=== PATIENT | female | born 1990 | race Caucasian/White ===

== ENCOUNTER 2017-04-23 12:32 | Emergency (ER) | payer BC, OTHER ==
[2017-04-23 12:39] VITALS: RESP 16; TEMP 98.1
[2017-04-23] MEDS ORDERED: KETOROLAC 15 MG/1 ML SDV IVP ONE (12:51)
[2017-04-23] MEDS ORDERED: ONDANSETRON 4 MG/2 ML VIAL IVP ONE (12:51)
[2017-04-23] MEDS ORDERED: NS 1,000 ML IV ONE (12:51)
[2017-04-23 13:01] LABS: % IMMATURE GRANULYOCYTES 0.2 % (0.0-1.1); ABSOLUTE IMMATURE GRANULOCYTES 0.01 10^3/uL (0.00-0.10); ADD DIFF? NO; ADD MORPH? NO; ADD SCAN? NO; ATYPICAL LYMPHOCYTE FLAG 20 (0-99); FRAGMENT RBC FLAG 0 (0-99); HEMATOCRIT 41.7 % (38.0-47.0); HEMOGLOBIN 13.9 g/dL (12.6-16.3); LEFT SHIFT FLG 0 (0-99); LIPEMIA HEMOLYSIS FLAG 80 (0-99); MEAN CELL HEMOGLOBIN 30.8 pg (27.9-34.1); MEAN CELL HEMOGLOBIN CONCENTR. 33.3 g/dL (32.4-36.7); MEAN CELL VOLUME 92.3 fL (81.5-99.8); MEAN PLATELET VOLUME 9.6 fL (8.7-11.7); PLATELET CLUMPS FLAG 20 (0-99); PLATELET COUNT 324 10^3/uL (150-400); RED BLOOD CELL COUNT 4.52 10^6/uL (4.18-5.33); RED CELL DISTRIBUTION WIDTH 12.7 % (11.5-15.2)
--- NOTE | 2017-04-23 13:02 | EDPHY ---
H & P Stated Complaint: RUQ PAIN SINCE 0700; NAUSEA Time Seen by Provider: 04/23/17 12:35 HPI/ROS: CHIEF COMPLAINT: Right upper quadrant discomfort HISTORY OF PRESENT ILLNESS: 26-year-old female states she woke at 7 o'clock this morning with a sharp pain in the right upper quadrant. Patient turned over in bed and developed significant nausea and spinning sensation. Discomfort has continued in the right upper quadrant. Feels like a knife stabbing straight through. She has been nauseous but vomiting. Has not eaten anything. No diarrhea. No fevers. No urinary complaints. 2 weeks ago patient had a day and a half a fever to 103 abdominal upset and bloating. Mild nausea at that time but no vomiting. She reports no cold or cough symptoms currently. No history of abdominal surgeries. No prior history of similar complaints. No history of kidney stones, gallstones, PEs, DVTs, or clotting disorders. There is a family history of gallstones. Currently on her period. Has an IUD in place. Pain is not pleuritic. Patient denies any shortness of breath or chest pain. She denies a headache or lightheadedness. REVIEW OF SYSTEMS: Aside from elements discussed in the HPI, a comprehensive 10-point review of systems was reviewed and is negative. PAST MEDICAL HISTORY: Rheumatoid arthritis, on Enbrel. SOCIAL HISTORY: Nonsmoker. Rare alcohol. 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 VITAL SIGNS Reviewed by me. GENERAL: Well-developed, well-nourished, appears uncomfortable. Moving somewhat slowly. HEENT: Atraumatic. Eyes: No icterus, no injection. Mouth: moist mucous membranes. No erythema or lesions. Neck: supple with no adenopathy. LUNGS: Clear to auscultation bilaterally, no wheezes, rhonchi or rales. CARDIAC: Regular rate and rhythm, no rubs, murmurs or gallops. ABDOMEN: Soft, tenderness in the right upper quadrant. No epigastric tenderness. No right lower quadrant tenderness. No distension. No guarding. No rebound. BACK: No CVA tenderness. EXTREMITIES: No trauma. No edema. Range of motion is normal throughout. NEURO: Alert and oriented, grossly nonfocal. SKIN: Warm and dry, no rash. PSYCHIATRIC: Normal mentation, no agitation. - Personal History LMP (Females 10-55): Now Current Tetanus/Diphtheria Vaccine: Yes Tetanus Vaccine Date: WITHIN 10 YRS - Medical/Surgical History Hx Asthma: No Hx Chronic Respiratory Disease: No Hx Diabetes: No Hx Cardiac Disease: No Hx Renal Disease: No Hx Cirrhosis: No Hx Alcoholism: No Hx HIV/AIDS: No Hx Splenectomy or Spleen Trauma: No Other PMH: RA - Social History Smoking Status: Never smoked Constitutional: Initial Vital Signs Temperature (C) 36.7 C 04/23/17 12:33 Heart Rate 54 L 04/23/17 12:33 Respiratory Rate 16 04/23/17 12:33 Blood Pressure 123/81 H 04/23/17 12:33 O2 Sat (%) 98 04/23/17 12:33 O2 Delivery Mode Room Air Allergies/Adverse Reactions: ciprofloxacin Allergy (Intermediate, Verified 04/23/17 12:39) Penicillins Allergy (Intermediate, Verified 04/23/17 12:39) Home Medications: Medication Instructions Recorded Enbrel 04/23/17 Ondansetron Odt [Zofran Odt 4 mg 4 mg PO Q6 PRN #8 tab 04/23/17 (RX)] Leidy 04/23/17 Medical Decision Making ED Course/Re-evaluation: 26-year-old female with abrupt onset of significant right upper quadrant tenderness. Patient does have a history of rheumatoid arthritis and is on Enbrel. She reports a fever was 2 weeks ago associated with some abdominal discomfort. Patient had IV established received normal saline, Toradol, and Zofran. Her labs are largely unremarkable. She does have a slight elevation in her bilirubin with the majority being unconjugated. Urinalysis is normal. White count is normal. Patient had ultrasound ordered. Re-examination at 2:30 p.m.: Patient reports her pain has significantly improved after the Toradol. She does not have a history of gastritis and does not feel that the pain has a burning component. No discomfort when taking a deep breath. Ultrasound results demonstrate no gallstones, no sonographic Monae's, no gallbladder wall thickening. There is a small amount of pericholecystic fluid with no definitive cause. Liver looks normal. Patient reports feeling much improved. She was discharged with symptomatic care including Zofran to use as needed for nausea, Prilosec for epigastric and right upper quadrant discomfort, and instructions to return to the emergency department or seek care urgently if she is worsening despite the above measures. She is comfortable with the plan. Differential Diagnosis: Differential diagnosis for the patient's upper abdominal pain was considered including but not limited to cholecystitis, gastritis, peptic ulcers disease, and pancreatitis. - Data Points Laboratory Results: Laboratory Results 04/23/17 12:55 04/23/17 12:55 Medications Given: Discontinued Medications Sodium Chloride (Ns) 1,000 mls @ 0 mls/hr IV ONCE ONE PRN Reason: Wide Open Stop: 04/23/17 12:52 Last Admin: 04/23/17 12:57 Dose: 1,000 mls Ketorolac Tromethamine (Toradol) 15 mg IVP EDNOW ONE Stop: 04/23/17 12:52 Last Admin: 04/23/17 12:57 Dose: 15 mg Ondansetron HCl (Zofran) 4 mg IVP EDNOW ONE Stop: 04/23/17 12:52 Last Admin: 04/23/17 12:57 Dose: 4 mg Departure - Departure Disposition: Home, Routine, Self-Care Clinical Impression: Abdominal pain, Abdominal discomfort in right upper quadrant Condition: Good Instructions: Gastritis (ED), Abdominal Pain (ED) Additional Instructions: For your abdominal pain, I suggested you start with a bland diet and advance as tolerated. This means start with clear liquids such as water, Gatorade, juice, flat non- caffeinated soda. If you tolerate clear liquids, then you may add bland foods such as bananas, rice, or toast. If you do not have any worsening of your symptoms, you may begin to resume a regular diet. A suggest you begin taking a 2 week course of Prilosec. Okay to use ibuprofen if needed for pain. You been given a prescription of Zofran to use as needed for nausea. If you have recurrent episode of severe discomfort, if you developed pain associated with vomiting or fever, developed urinary complaints, bloating, diarrhea, fevers, or other concerns, please return to the emergency department or follow up with primary care physician. Referrals: NONE *PRIMARY CARE P,. [Primary Care Provider] - As per Instructions Prescriptions: Ondansetron Odt [Zofran Odt 4 mg (RX)] 4 mg PO Q6 PRN #8 tab PRN Reason: Nausea
[2017-04-23 13:19] LABS: ALANINE AMINOTRANSFERASE 34 IU/L (9-52); ALBUMIN 4.4 g/dL (3.5-5.0); ALKALINE PHOSPHATASE 53 IU/L (38-126); ANION GAP 14 mEq/L (8-16); ASPARTATE AMINOTRANSFERASE 21 IU/L (14-46); BILIRUBIN,TOTAL 1.8 mg/dL (0.1-1.4); BILIRUBIN-CONJUGATED 0.3 mg/dL (0.0-0.5); BILIRUBIN-UNCONJUGATED 1.5 mg/dL (0.0-1.1); CALCIUM 9.5 mg/dL (8.5-10.4); CARBON DIOXIDE 25 mEq/l (22-31); CHLORIDE 104 mEq/L (97-110); CREATININE 0.6 mg/dL (0.6-1.0); GLOMERULAR FILTRATION RATE > 60; GLUCOSE 78 mg/dL (70-100); POTASSIUM 4.1 mEq/L (3.5-5.2); SODIUM 143 mEq/L (134-144); TOTAL PROTEIN 7.4 g/dL (6.3-8.2)
[2017-04-23 13:44] LABS: COLOR YELLOW; LEUKOCYTE ESTERASE,URINE NEGATIVE (NEGATIVE); NITRITE,URINE NEGATIVE (NEGATIVE); PH,URINE 6.5 (5.0-7.5)
[2017-04-23 14:01] VITALS: PULSE 57
[2017-04-23 15:34] VITALS: BP 110/74; O2SAT 98
== END 2017-04-23 15:33 | disposition home or self-care (01) ==
LOC: CED 12:32
DX: R10.11 Right upper quadrant pain (principal); R11.10 Vomiting, unspecified
CPT/HCPCS: 76705-PO; 80048-PO; 80076-PO; 81003-PO; 83690-PO; 84703-PO; 85025-PO; 96374; J1885; J2405

== ENCOUNTER → 2017-05-22 | Outpatient (CLI) | payer OTHER | LOC: BMCIMAGING 16:09 | PROVIDERS: ATTEND Internal Medicine Rheumatology | DX: R06.02 Shortness of breath (principal); Z13.89 Encounter for screening for other disorder ==

== ENCOUNTER → 2017-05-26 | Outpatient (CLI) | payer OTHER | LOC: FIMAGING 17:05 | PROVIDERS: ATTEND Physician Assistant | DX: K59.00 Constipation, unspecified (principal); R14.0 Abdominal distension (gaseous); R10.84 Generalized abdominal pain ==

== ENCOUNTER → 2017-06-21 | Outpatient (CLI) | payer OTHER | LOC: FIMAGING 07:58 | PROVIDERS: ATTEND Physician Assistant | DX: K82.8 Other specified diseases of gallbladder (principal) | CPT/HCPCS: 78227; A9537 ==

== ENCOUNTER 2017-07-03 10:38 | Day surgery (SDC) | payer OTHER ==
[2017-07-03] MEDS ORDERED: CLINDAMYCIN 900 MG/DEXTROSE 50 ML IV ONE (10:53)
[2017-07-03] MEDS ORDERED: LIDOCAINE 1% 2 ML INJ ID PRN (10:55)
[2017-07-03] MEDS ORDERED: LR 1,000 ML IV ONE (10:55)
[2017-07-03] MEDS ORDERED: MIDAZOLAM 2 MG/2 ML VIAL IVP ONE (11:15)
--- NOTE | 2017-07-03 11:16 | PDANEPAE ---
ANE History of Present Illness Patient presents for lap anibal BONNIE Past Medical History - Cardiovascular History Hx Hypertension: No Hx Arrhythmias: No Hx Chest Pain: No Hx Coronary Artery / Peripheral Vascular Disease: No Hx CHF / Valvular Disease: No Hx Palpitations: No - Pulmonary History Hx COPD: No Hx Asthma/Reactive Airway Disease: No Hx Recent Upper Respiratory Infection: No Hx Oxygen in Use at Home: No Hx Sleep Apnea: No Sleep Apnea Screening Result - Last Documented: Negative - Neurologic History Hx Cerebrovascular Accident: No Hx Seizures: No Hx Dementia: No - Endocrine History Hx Diabetes: No - Renal History Hx Renal Disorders: No - Liver History Hx Hepatic Disorders: No - Neurological & Psychiatric Hx Hx Neurological and Psychiatric Disorders: No - Cancer History Hx Cancer: No - Congenital Disorder History Hx Congenital Disorders: No - GI History Hx Gastrointestinal Disorders: Yes Gastrointestinal History Comment: GALL STONES - Other Health History Other Health History: RHEUMATOID ARTHRITIS - Chronic Pain History Chronic Pain: Yes (GASTRIC) - Surgical History Prior Surgeries: WISDOM TEETH ANE Review of Systems Review of Systems: - Exercise capacity Exercise capacity: >=4 METS METS (RN): 4 METS ANE Patient History - Allergies Allergies/Adverse Reactions: ciprofloxacin Allergy (Intermediate, Verified 04/23/17 12:39) Penicillins Allergy (Intermediate, Verified 04/23/17 12:39) - Home Medications Home medications: home medication list seen and reviewed Home Medications: Enbrel ONCE 04/23/17 [Last Taken 06/26/17] Herbal Drugs DAILY 06/30/17 [Last Taken 06/26/17] - NPO status NPO Status: no food or drink >8 hours - Anes Hx Anes Hx: no prior problems - Smoking Hx Smoking Status: Never smoked - Family Anes Hx Family Hx Anesthesia Complications: NEG ANE Labs/Vital Signs - Vital Signs Height: 154.94 cm Weight: 48.534 kg ANE Physical Exam - Airway Neck exam: FROM Mallampati Score: Class 1 Mouth exam: normal dental/mouth exam - Pulmonary Pulmonary: no respiratory distress - Cardiovascular Cardiovascular: regular rate and rhythym - ASA Status ASA Status: I ANE Anesthesia Plan Anesthesia Plan: general endotracheal anesthesia (RBA discussed)
--- NOTE | 2017-07-03 11:33 | PDHPUP ---
History & Physical Update H&P update statement: This history and physical update is based on an assessment of the patient which was completed after admission or registration (within 24 hours), but prior to the surgery/procedure. H&P update: H&P reviewed & patient examined, no change in patient's condition since H&P completed
[2017-07-03] MEDS ORDERED: BUPIVACAINE/EPI 0.5% 30 ML SDV ONE (11:55)
[2017-07-03] MEDS ORDERED: PROPOFOL 200 MG/20 ML VIAL ONE (11:55)
[2017-07-03] MEDS ORDERED: fentaNYL 100 MCG/2 ML INJ ONE ×3 (11:55→13:55)
[2017-07-03] MEDS ORDERED: LIDOCAINE 2% 5 ML SDV ONE (11:57)
[2017-07-03] MEDS ORDERED: ROCURONIUM 50 MG/5 ML VIAL ONE ×2 (11:57→12:29)
[2017-07-03] MEDS ORDERED: PROPOFOL/EMULSION 500 MG/50 ML BOTTLE IV ONE (12:13)
[2017-07-03] MEDS ORDERED: ONDANSETRON 4 MG/2 ML VIAL ONE (12:26)
[2017-07-03] MEDS ORDERED: DEXAMETHASONE 4 MG/ML VIAL ONE (12:26)
[2017-07-03] MEDS ORDERED: SUGAMMADEX SODIUM 200 MG/2 ML VIAL IVP ONE (12:27)
[2017-07-03] MEDS ORDERED: KETOROLAC 30 MG/1 ML SDV ONE (12:27)
[2017-07-03] MEDS ORDERED: OXYCODONE/APAP 5/325 TAB PO PRN (13:06)
[2017-07-03] MEDS ORDERED: LR 500 ML IV PRN (13:06)
[2017-07-03] MEDS ORDERED: PROMETHAZINE HCL 25 MG/ML INJ IVP PRN (13:06)
[2017-07-03] MEDS ORDERED: HYDROCODONE/APAP 5/325 TAB PO PRN (13:06)
[2017-07-03] MEDS ORDERED: ONDANSETRON 4 MG/2 ML VIAL IVP PRN (13:06)
[2017-07-03] MEDS ORDERED: NALOXONE HCL 0.4 MG/ML INJ IVP PRN (13:06)
--- NOTE | 2017-07-03 13:26 | POSTOPPROG ---
Post Op Note Date of Operation: 07/03/17 Surgeon: Noé Hatfield Marine Consultant: Columba PAK Anesthesiologist: Amanda Anesthesia: GET(General Endotracheal) Pre-op Diagnosis: Biliary Dyskinesia Post-op Diagnosis: Chronic cholecystitis Indication: pain Procedure: Robotic assisted lap anibal Findings: adhesions and edematous wall. Critical view obtained Inf/Abcess present in the surg proc area at time of surgery?: No EBL: Minimal Specimen(s): GB
--- NOTE | 2017-07-03 13:48 | POSTANESTH ---
Post Anesthetic Evaluation Cardiovascular Status: Normal, Stable Respiratory Status: Normal, Stable Level of Consciousness/Mental Status: Can Participate in Eval Pain Control: Adequate, Prn Tx Ordered Nausea/Vomiting Control: Adequate, Prn Tx Ordered Complications Possibly Related to Anesthesia: None Noted
[2017-07-03] MEDS: fentaNYL 100 MCG/2 ML INJ IVP PRN ×2 (13:57→14:10)
--- NOTE | 2017-07-03 15:09 | GOP ---
[f rep st] OPERATIVE REPORT DATE OF OPERATION: 07/03/2017 SURGEON: Noé Hatfield MD BOUFFANT CURTAIN MACHINE TENDER: ZURDO Lr ANESTHESIA: General endotracheal provided by Dr. Lincoln Patel. PREOPERATIVE DIAGNOSIS: Biliary dyskinesia. POSTOPERATIVE DIAGNOSIS: Chronic cholecystitis. PROCEDURE PERFORMED: Robotic assisted laparoscopic cholecystectomy. FINDINGS: Multiple adhesions to the gallbladder wall, which was edematous. Critical view was obtain ed. SPECIMENS: Gallbladder. ESTIMATED BLOOD LOSS: 5 cc. DESCRIPTION OF PROCEDURE: The patient was greeted in the preoperative suite. Once again, risks, lincoln efits, and alternatives were discussed. Consent was signed. She was then brought back to the operat katy suite, placed on the OR table in a supine position. After all anesthesia machines, including SCD s were on and functioning, a World Health Organization time-out was performed. Antibiotics were give n on-call to the operating room. After successful induction of general anesthesia, the patient's abd omen was widely prepped and draped in typical sterile fashion. I entered the abdomen infraumbilically via a vertical cut down through which the Veress needle was pa ssed. I successfully insufflated with CO2 to 15 mmHg, which was well tolerated by the patient. Thro ugh this site, I inserted a 10/12 mm trocar under direct visualization using the Visiport technique. Once successfully in the abdomen, I placed 3 additional 8 mm trocars, 1 in the left upper quadrant, 2 in the right upper quadrant, both under direct visualization. After this was done, I successfully docked the robot. Once in the abdomen, I grabbed the fundus of the gallbladder and successfully retr acted it over the dome of the liver. Once retracted, I grabbed the infundibulum and did take down so me small omental adhesions to the infundibulum of the gallbladder. After doing this, I dissected sha rply at the infundibulum and identified 2 and only 2 structures leading toward the gallbladder with a clear view of the hepatic plate deep to this. After this was done, I placed 2 clips proximally, 1 c lip distally on the cystic duct and artery and successfully divided them. I then took the gallbladde r off the liver bed using electrocautery. It was then placed in an EndoCatch bag and removed. The r ight upper quadrant was then irrigated with warm normal saline noting clear effluent in the suction c anister. The ports were then removed under direct visualization. I desufflated my pneumoperitoneum, and I closed my infraumbilical site with an interrupted 0-Vicryl noting excellent fascial reapproxim ation. The skin was closed with running 4-0 Monocryl over which Dermabond was placed. The patient w as then extubated in the operative suite and taken to the PACU in satisfactory condition. DRAINS: None. COUNTS: All counts were reported as correct x2. /[id number]/MODL
[2017-07-03 16:10] VITALS: TEMP 97
[2017-07-03 16:34] VITALS: BP 120/72; PULSE 68; RESP 16; O2SAT 98
[2017-07-03] MEDS ORDERED: OXYCODONE/APAP 5/325 TAB ONE (16:56)
== END 2017-07-03 17:30 | disposition home or self-care (01) ==
LOC: FSGY 10:38
PROVIDERS: ATTEND Surgery
PROC: 8E0W4CZ Robotic Assisted Procedure of Trunk Region, Percutaneous Endoscopic Approach (ICD-10-PCS; principal; 2017-07-03 12:00)
PROC: 0FT44ZZ Resection of Gallbladder, Percutaneous Endoscopic Approach (ICD-10-PCS; principal; 2017-07-03 12:00)
DX: K81.1 Chronic cholecystitis (principal)
CPT/HCPCS: J1100; J1885; J2250; J2405; J2704; J3010

== ENCOUNTER 2017-07-03 18:50 | Observation (INO) | payer OTHER ==
--- NOTE | 2017-07-03 19:21 | CPEKG ---
Heart Rate: 61 RR Interval: 984 P-R Interval: 128 QRSD Interval: 104 QT Interval: 400 QTC Interval: 403 P [place]: 79 QRS [place]: 79 T Wave [place]: 35 EKG Severity - BORDERLINE ECG - EKG Impression: SINUS RHYTHM EKG Impression: BORDERLINE T ABNORMALITIES, ANTERIOR LEADS Electronically Signed By: Elmer Cochran 03-Jul-2017 23:42:20
--- NOTE | 2017-07-03 19:40 | EDPHY ---
H & P Time Seen by Provider: 07/03/17 19:39 HPI/ROS: Chief complaint. painful breathing HPI. 26-year-old female presents emergency department with chest pain and painful breathing as well as abdominal pain. She had a cholecystectomy today as an outpatient for nonfunctioning gallbladder. She felt well going into the surgery. Since then she has had chest pain abdominal pain that are not controlled with Percocet. She short of breath and it hurts to take a deep breath. No nausea or vomiting. No cough or fever. She has rheumatoid arthritis and has held her Enbrel this week secondary to anticipation of surgery. No unusual leg pain or swelling. ROS Constitutional. no fever/chills, no weakness Eyes. no problems with vision ENT. no sore throat, no nasal drainage Cardiovascular. Chest pain Respiratory. Shortness of breath and pain with deep breathing. No cough Abdominal. Abdominal pain without nausea vomiting . no problems urinating MS. no calf pain/swelling, no neck/back pain, no joint pain Skin. no rash Lymph. no swollen glands Neuro. no headache, no dizziness, no difficulty walking or with speech Past Medical/Surgical History: Rheumatoid arthritis, cholecystectomy Social History: , nonsmoker, no alcohol Smoking Status: Never smoked Physical Exam: General Appearance: Alert well-developed female moderate distress. Vital signs are stable Eyes: Pupils equal and round no pallor or injection. ENT, Mouth: Mucous membranes are moist. Respiratory: There are no retractions, lungs are clear to auscultation. Cardiovascular: Regular rate and rhythm. Gastrointestinal: Abdomen is soft and diffusely tender. Well-approximated surgical incisions in left and right abdomen as well as periumbilical. Slightly decreased bowel sounds. No masses Neurological: Awake and alert, sensory and motor exams grossly normal. Skin: Warm and dry, no rashes. Musculoskeletal: Neck is supple nontender. Extremities symmetrical, full range of motion. Psychiatric: Patient is oriented X 3, there is no agitation. Constitutional: Initial Vital Signs Temperature (C) 37.2 C 07/03/17 19:06 Heart Rate 86 07/03/17 19:06 Respiratory Rate 14 07/03/17 19:06 Blood Pressure 123/71 H 07/03/17 19:06 O2 Sat (%) 96 07/03/17 19:06 O2 Delivery Mode Room Air Allergies/Adverse Reactions: ciprofloxacin Allergy (Intermediate, Verified 04/23/17 12:39) Penicillins Allergy (Intermediate, Verified 04/23/17 12:39) Home Medications: Medication Instructions Recorded Enbrel ONCE 04/23/17 Herbal Drugs DAILY 06/30/17 oxyCODONE HCL/ACETAMINOPHEN 1 each PO Q4HRS #30 tablet 07/03/17 [Percocet 5-325 mg Tablet] Medical Decision Making - Diagnostics EKG Interpretation: EKG interpreted by me shows normal sinus rhythm normal interval and axis. QRS is normal. Slight T-wave flattening in leads V2 and V3. No significant ST elevation or depression. No arrhythmia. The rate is 60 Imaging Results: Imaging Impressions Abdomen CT 07/03/17 19:55 Impression: 1. Small to moderate pneumoperitoneum with a small amount of free fluid, most likely within normal limits for cholecystectomy earlier today. However, given the ascites, a bile leak cannot be excluded. 2. No visible pulmonary embolus. 3. Additional findings as above. Findings discussed with BUD MATHUR 07/03/2017 at 23:05. Chest/Thorax CTA 07/03/17 19:55 Impression: 1. Small to moderate pneumoperitoneum with a small amount of free fluid, most likely within normal limits for cholecystectomy earlier today. However, given the ascites, a bile leak cannot be excluded. 2. No visible pulmonary embolus. 3. Additional findings as above. Findings discussed with BUD MATHUR 07/03/2017 at 23:05. Procedures: IV normal saline. Dilaudid for pain. Zofran for nausea prevention ED Course/Re-evaluation: On serial evaluations patient continues to complain of pain. She is given further pain medication and IV Ativan. 11:20 p.m. re-evaluation patient is stable. She and I discussed imaging and lab results. We discussed treatment plan including criteria for return importance of follow-up and further evaluation. She expresses understanding and agreement I consulted and discussed case with Dr. Gleason, surgery, who agrees to the admission Differential Diagnosis: Patient has findings of postoperative changes. There is no evidence for pulmonary embolus however the patient has atelectasis. She has free air and fluid in the abdomen which may represent bile leak but also could represent postoperative laparoscopic air and fluid - Data Points Laboratory Results: Laboratory Results 07/03/17 20:40 07/03/17 20:40 07/03/17 07/03/17 07/03/17 Unknown 20:40 20:40 WBC RBC Hgb Hct MCV MCH MCHC RDW Plt Count MPV Neut % (Auto) Lymph % (Auto) [place] % (Auto) Eos % (Auto) Baso % (Auto) Nucleat RBC Rel Count Absolute Neuts (auto) Absolute Lymphs (auto) Absolute Monos (auto) Absolute Eos (auto) Absolute Basos (auto) Absolute Nucleated RBC Immature Gran % Immature Gran # PT 14.6 SEC SEC (12.0-15.0) INR 1.15 (0.83-1.16) APTT 29.8 SEC SEC (23.0-38.0) D-Dimer 1.21 ug/mLFEU H ug/mLFEU (0.00-0.50) Sodium 138 mEq/L mEq/L (134-144) Potassium 4.2 mEq/L mEq/L (3.5-5.2) Chloride 102 mEq/L mEq/L (97-110) Carbon Dioxide 23 mEq/l mEq/l (22-31) Anion Gap 13 mEq/L mEq/L (8-16) BUN 12 mg/dL mg/dL (7-23) Creatinine 0.7 mg/dL mg/dL (0.6-1.0) Estimated GFR > 60 Glucose 139 mg/dL H mg/dL (70-100) Calcium 9.6 mg/dL mg/dL (8.5-10.4) Total Bilirubin 1.1 mg/dL mg/dL (0.1-1.4) Conjugated Bilirubin 0.2 mg/dL mg/dL (0.0-0.5) Unconjugated Bilirubin 0.9 mg/dL mg/dL (0.0-1.1) AST 158 IU/L H IU/L (14-46) ALT 125 IU/L H IU/L (9-52) Alkaline Phosphatase 57 IU/L IU/L (38-126) Troponin I < 0.012 ng/mL ng/mL (0.000-0.034) Total Protein 7.5 g/dL g/dL (6.3-8.2) Albumin 4.2 g/dL g/dL (3.5-5.0) Lipase 437 IU/L H IU/L (23-300) Beta HCG, Qual NEGATIVE 07/03/17 20:40 WBC 10.87 10^3/uL H 10^3/uL (3.80-9.50) RBC 4.60 10^6/uL 10^6/uL (4.18-5.33) Hgb 14.0 g/dL g/dL (12.6-16.3) Hct 43.4 % % (38.0-47.0) MCV 94.3 fL fL (81.5-99.8) MCH 30.4 pg pg (27.9-34.1) MCHC 32.3 g/dL L g/dL (32.4-36.7) RDW 13.2 % % (11.5-15.2) Plt Count 267 10^3/uL 10^3/uL (150-400) MPV 10.0 fL fL (8.7-11.7) Neut % (Auto) 93.8 % H % (39.3-74.2) Lymph % (Auto) 5.0 % L % (15.0-45.0) [place] % (Auto) 0.7 % L % (4.5-13.0) Eos % (Auto) 0.0 % L % (0.6-7.6) Baso % (Auto) 0.2 % L % (0.3-1.7) Nucleat RBC Rel Count 0.0 % % (0.0-0.2) Absolute Neuts (auto) 10.20 10^3/uL H 10^3/uL (1.70-6.50) Absolute Lymphs (auto) 0.54 10^3/uL L 10^3/uL (1.00-3.00) Absolute Monos (auto) 0.08 10^3/uL L 10^3/uL (0.30-0.80) Absolute Eos (auto) 0.00 10^3/uL L 10^3/uL (0.03-0.40) Absolute Basos (auto) 0.02 10^3/uL 10^3/uL (0.02-0.10) Absolute Nucleated RBC 0.00 10^3/uL 10^3/uL (0-0.01) Immature Gran % 0.3 % % (0.0-1.1) Immature Gran # 0.03 10^3/uL 10^3/uL (0.00-0.10) PT INR APTT D-Dimer Sodium Potassium Chloride Carbon Dioxide Anion Gap BUN Creatinine Estimated GFR Glucose Calcium Total Bilirubin Conjugated Bilirubin Unconjugated Bilirubin AST ALT Alkaline Phosphatase Troponin I Total Protein Albumin Lipase Beta HCG, Qual Medications Given: Hydromorphone HCl (Dilaudid) 0.5 mg IVP Q2HRS PRN PRN Reason: Pain, Severe Unable to Take PO Last Admin: 07/03/17 21:39 Dose: 0.5 mg Discontinued Medications Hydromorphone HCl (Dilaudid) 0.5 mg IVP EDNOW ONE Stop: 07/03/17 19:55 Last Admin: 07/03/17 20:32 Dose: 0.5 mg Sodium Chloride (Ns) 1,000 mls @ 0 mls/hr IV EDNOW ONE; Wide Open PRN Reason: Protocol Stop: 07/03/17 19:55 Last Admin: 07/03/17 20:34 Dose: 1,000 mls Lorazepam (Ativan Injection) 1 mg IVP EDNOW ONE Stop: 07/03/17 21:36 Last Admin: 07/03/17 21:39 Dose: 1 mg Ondansetron HCl (Zofran) 4 mg IVP EDNOW ONE Stop: 07/03/17 19:55 Last Admin: 07/03/17 20:31 Dose: 4 mg Ondansetron HCl (Zofran) 4 mg IVP EDNOW ONE Stop: 07/03/17 19:55 Last Admin: 07/03/17 20:44 Dose: Not Given Departure - Departure Disposition: [facility] Inpatient Acute Clinical Impression: Abdominal pain Qualifiers: Abdominal location: right upper quadrant Qualified Code(s): R10.11 - Right upper quadrant pain Condition: Fair Referrals: Judy Ogden PA [Primary Care Provider] - As per Instructions
[2017-07-03] MEDS ORDERED: ONDANSETRON 4 MG/2 ML VIAL IVP ONE ×2 (19:54)
[2017-07-03] MEDS ORDERED: HYDROmorphONE/DILAUDID 1 MG/ML INJ IVP ONE (19:54)
[2017-07-03] MEDS ORDERED: NS 1,000 ML IV ONE (19:54)
[2017-07-03 20:47] LABS: % IMMATURE GRANULYOCYTES 0.3 % (0.0-1.1); ABSOLUTE IMMATURE GRANULOCYTES 0.03 10^3/uL (0.00-0.10); ADD DIFF? NO; ADD MORPH? NO; ADD SCAN? NO; ATYPICAL LYMPHOCYTE FLAG 0 (0-99); FRAGMENT RBC FLAG 0 (0-99); HEMATOCRIT 43.4 % (38.0-47.0); LEFT SHIFT FLG 20 (0-99); LIPEMIA HEMOLYSIS FLAG 80 (0-99); MEAN CELL HEMOGLOBIN 30.4 pg (27.9-34.1); MEAN CELL HEMOGLOBIN CONCENTR. 32.3 g/dL (32.4-36.7); MEAN CELL VOLUME 94.3 fL (81.5-99.8); PLATELET CLUMPS FLAG 0 (0-99); PLATELET COUNT 267 10^3/uL (150-400); RED CELL DISTRIBUTION WIDTH 13.2 % (11.5-15.2)
[2017-07-03 20:59] LABS: INR 1.15 (0.83-1.16); PROTIME(PATIENT) 14.6 SEC (12.0-15.0)
[2017-07-03 21:00] LABS: APTT 29.8 SEC (23.0-38.0)
[2017-07-03 21:03] LABS: ALANINE AMINOTRANSFERASE 125 IU/L (9-52); ALBUMIN 4.2 g/dL (3.5-5.0); ALKALINE PHOSPHATASE 57 IU/L (38-126); ANION GAP 13 mEq/L (8-16); ASPARTATE AMINOTRANSFERASE 158 IU/L (14-46); BILIRUBIN,TOTAL 1.1 mg/dL (0.1-1.4); BILIRUBIN-CONJUGATED 0.2 mg/dL (0.0-0.5); BILIRUBIN-UNCONJUGATED 0.9 mg/dL (0.0-1.1); CALCIUM 9.6 mg/dL (8.5-10.4); CARBON DIOXIDE 23 mEq/l (22-31); CHLORIDE 102 mEq/L (97-110); CREATININE 0.7 mg/dL (0.6-1.0); GLOMERULAR FILTRATION RATE > 60; GLUCOSE 139 mg/dL (70-100); POTASSIUM 4.2 mEq/L (3.5-5.2); SODIUM 138 mEq/L (134-144); TOTAL PROTEIN 7.5 g/dL (6.3-8.2)
[2017-07-03 21:14] LABS: TROPONIN I < 0.012 ng/mL (0.000-0.034)
[2017-07-03] MEDS ORDERED: LORazepam 2 MG/ML INJ IVP ONE (21:35)
[2017-07-03] MEDS ORDERED: HYDROmorphONE/DILAUDID 1 MG/ML INJ IVP PRN (21:35)
[2017-07-03] MEDS ORDERED: HYDROmorphONE/DILAUDID 1 MG/ML INJ ONE (21:36)
[2017-07-03] MEDS ORDERED: LORazepam 2 MG/ML INJ ONE (21:37)
[2017-07-03] MEDS ORDERED: IOPAMIDOL (ISOVUE 370) 100 ML BTL IV ONE (22:28)
[2017-07-04] MEDS ORDERED: HYDROmorphONE/DILAUDID 2 MG/ML INJ IVP PRN ×2 (00:30→01:28)
--- NOTE | 2017-07-04 01:18 | PDGENHP ---
History & Physical Chief Complaint: CHEST PAIN History of Present Illness: 26 FEMALE POSTOP FROM LAP ADRI TODAY, C/O RUQ PAIN AND CHEST PAIN WITH DEEP BREATH. CT IS WNL. LFTs MILDLY ELEVATED/ AFEBRILE. AFTER MUCH NARCOTICS LISTS PAIN 8. ADMIT FOR OBS AND PAIN CONTROL Pertinent Past, Social, Family History: PMH BILIARY DYSKINESIA AND LAP CHOLEY/ ALSO RA. ALL CIPRO, PCN. MEDS EMBRAL. ROS - 10 PT REVIEW. FMH NONCOTRIB Relevant Physical Exam: HEENT NONICTERIC, NO ORAL LESIONS. CHEST CLEAR W/O RUB OR WHEEZING. COR RR. ABD: SOFT, NO PERITONEAL SXs. EXTREM: FULL ROM. NEURO OK GEN: ALERT, AFEBRILE 26 FEMALE Cardiorespiratory Assessment: ABD AND CHEST PAIN WITH RESP 2/2 CO2 INFLATION/ SOME SLIGHT CHANCE OF BILE LEAK. PLAN ADMIT FOR OBS, PAIN CONTROL/ POSSIBLE HIDA/ RISKS AND OPTIONS FULLY DISCUSSED
[2017-07-04] MEDS ORDERED: ONDANSETRON 4 MG/2 ML VIAL IVP PRN (01:28)
[2017-07-04] MEDS ORDERED: OXYCODONE/APAP 5/325 TAB PO PRN (01:28)
[2017-07-04] MEDS: D5W 1/2 NS W/ 20 KCl/L 1,000 ML IV SCH (03:09)
[2017-07-04 05:34] LABS: % IMMATURE GRANULYOCYTES 0.2 % (0.0-1.1); ABSOLUTE IMMATURE GRANULOCYTES 0.02 10^3/uL (0.00-0.10); ADD DIFF? NO; ADD MORPH? NO; ADD SCAN? NO; ATYPICAL LYMPHOCYTE FLAG 10 (0-99); FRAGMENT RBC FLAG 0 (0-99); HEMATOCRIT 35.7 % (38.0-47.0); HEMOGLOBIN 11.9 g/dL (12.6-16.3); LEFT SHIFT FLG 30 (0-99); LIPEMIA HEMOLYSIS FLAG 80 (0-99); MEAN CELL HEMOGLOBIN CONCENTR. 33.3 g/dL (32.4-36.7); MEAN PLATELET VOLUME 10.2 fL (8.7-11.7); PLATELET CLUMPS FLAG 0 (0-99); PLATELET COUNT 249 10^3/uL (150-400); RED BLOOD CELL COUNT 3.84 10^6/uL (4.18-5.33); RED CELL DISTRIBUTION WIDTH 13.1 % (11.5-15.2)
[2017-07-04] MEDS: KETOROLAC 15 MG/1 ML SDV IVP SCH ×3 (06:00→17:53)
[2017-07-04 06:02] LABS: ALANINE AMINOTRANSFERASE 370 IU/L (9-52); ALBUMIN 3.1 g/dL (3.5-5.0); ALKALINE PHOSPHATASE 54 IU/L (38-126); AMYLASE 33 IU/L (30-110); ASPARTATE AMINOTRANSFERASE 359 IU/L (14-46); BILIRUBIN,TOTAL 1.3 mg/dL (0.1-1.4); BILIRUBIN-CONJUGATED 0.2 mg/dL (0.0-0.5); BILIRUBIN-UNCONJUGATED 1.1 mg/dL (0.0-1.1); TOTAL PROTEIN 5.9 g/dL (6.3-8.2)
--- NOTE | 2017-07-04 08:52 | CPEKG ---
Heart Rate: 52 RR Interval: 1154 P-R Interval: 144 QRSD Interval: 96 QT Interval: 420 QTC Interval: 391 P [place]: 69 QRS [place]: 83 T Wave [place]: 50 EKG Severity - BORDERLINE ECG - EKG Impression: SINUS RHYTHM EKG Impression: BORDERLINE T ABNORMALITIES, ANTERIOR LEADS EKG Impression: unchanged from previous ECGs Electronically Signed By: Jeremías Holley 04-Jul-2017 11:23:08
[2017-07-04 08:58] LABS: TROPONIN I < 0.012 ng/mL (0.000-0.034)
[2017-07-04 09:24] LABS: CREATINE KINASE-MB FRACTION 0.81 ng/mL (0.00-3.19)
[2017-07-04] MEDS ORDERED: HYDROmorphONE/DILAUDID 2 MG TAB PO PRN (11:37)
[2017-07-04] MEDS: LORazepam 1 MG TAB PO PRN ×3 (12:31→22:16)
--- NOTE | 2017-07-04 13:51 | SOAPPROG ---
SOAP Progress Note Assessment/Plan: Assessment/Plan: 26yo F POD#1 s/p lev barnett - Admitted overnight for pain. CT at that time showed appropriate fluid in GB fossa. HIDA this AM shows no leak and no biliary obstruction. LFTs up a little bit but not unanticipated given recent manipulation. Have changed pain medications around and will see how she does and eval for poss dc later today. 07/04/17 13:50 Subjective: Pain still an issue. Eating fine tho. Voiding. Objective: Vital Signs Temp Pulse Resp BP Pulse Ox 36.8 C 66 16 117/77 98 07/04/17 11:59 07/04/17 11:59 07/04/17 11:59 07/04/17 11:59 07/04/17 11:59 Laboratory Results 07/04/17 05:07 07/03/17 07/04/17 07/05/17 05:59 05:59 05:59 Intake Total 1000 Balance 1000 PT 14.6 SEC (12.0-15.0) 07/03/17 20:40 INR 1.15 (0.83-1.16) 07/03/17 20:40 ICD10 Worksheet Patient Problems: Problems Problem Status Onset Abdominal pain Acute Jaw pain Acute Spontaneous vaginal delivery Acute
--- NOTE | 2017-07-04 13:59 | ASMTCMCOM ---
CM Note CM Note Notes: Pt om fpr abd pain post surgery, anticipate pt will d/c when medically stable. No CM d/c needs identified. CM available for change/needs. Date Signed: 07/04/2017 01:59 PM Electronically Signed By:YOKO Taylor
[2017-07-04 23:36] VITALS: RESP 16; TEMP 98.5
[2017-07-05] MEDS: KETOROLAC 15 MG/1 ML SDV IVP SCH ×3 (00:29→11:24)
[2017-07-05] MEDS: D5W 1/2 NS W/ 20 KCl/L 1,000 ML IV SCH (00:30)
[2017-07-05 08:34] VITALS: BP 114/69; PULSE 71; O2SAT 97
[2017-07-05] MEDS ORDERED: IBUPROFEN 600 MG TAB PO PRN (10:37)
[2017-07-05] MEDS: SIMETHICONE 80 MG TAB CHEW PO SCH ×2 (11:25→12:58)
[2017-07-05 14:03] LABS: ALBUMIN 3.8 g/dL (3.5-5.0); BILIRUBIN,TOTAL 1.3 mg/dL (0.1-1.4); BILIRUBIN-CONJUGATED 0.3 mg/dL (0.0-0.5); TOTAL PROTEIN 6.7 g/dL (6.3-8.2)
--- NOTE | 2017-07-05 14:24 | ASDISCHSUM ---
Discharge Information Plan Status:Home with No Needs Medically Cleared to Leave: Discharge Date:07/05/2017 01:30 PM CM D/C Disposition:Home, Routine, Self-Care ADT D/C Disposition:Home, Routine, Self-Care Projected Discharge Date:07/05/2017 01:30 PM Transportation at D/C: Discharge Delay Reason: Follow-Up Date:07/05/2017 01:30 PM Discharge Slot: Final Diagnosis: Placement Information Patient Contact Information Contact Name:BARRY Relationship: Address:[address] Home Phone: City:[place] Alternate Phone: [facility]/Zip Code:[place] [address] Email: Financial Information Financial Class:HMO and PPO Plans Primary Plan Desc:[employer] PPO Primary Plan Number:[id number] Secondary Plan Desc: Secondary Plan Number: Assessment Information [facility] CM Progress Note CM Note CM Note Notes: Pt om fpr abd pain post surgery, anticipate pt will d/c when medically stable. No CM d/c needs identified. CM available for change/needs. Date Signed: 07/04/2017 01:59 PM Electronically Signed By:YOKO Taylor Intervention Information
== END 2017-07-05 13:30 | disposition home or self-care (01) ==
LOC: INTOOBSV 23:27 → F3N 07-04 00:21
PROVIDERS: ADMIT Surgery; ATTEND Surgery
DX: G89.18 Other acute postprocedural pain (principal); R06.09 Other forms of dyspnea; M06.9 Rheumatoid arthritis, unspecified
CPT/HCPCS: 71275; 74177; 78226; 93005; 96361; 96374; 96375; 96376; 99285; A9537; G0378; J1170; J1885; J2060; J2405; Q9967

== ENCOUNTER 2017-11-14 20:27 | Emergency (ER) | payer OTHER ==
[2017-11-14 20:35] VITALS: RESP 16; TEMP 98.1; O2SAT 98
--- NOTE | 2017-11-14 20:58 | EDPHY ---
General Narrative: CHIEF COMPLAINT: Left calf pain, headache, blurred vision HISTORY OF PRESENT ILLNESS: Patient complains of 24 hr of left calf pain and 12 hr of intermittent headache and blurred vision. Left calf pain is isolated to the posterior aspect of the calf. She felt as though it may have been a muscle strain or spasm. She has attempted to stretch and massage with no improvement. The pain does not radiate. It is somewhat worse with exertion. No chest pain of any kind. No numbness or tingling. No trauma or injury. No redness or swelling. The headache is mild in bilateral hemispheric. No sudden onset. No worst headache of her life. No neck pain or stiffness. The blurred vision is intermittent and described as mild. No diplopia. No fever. No recent travel, trauma or surgery. No history of venous thrombolic event. No other associated complaints or modifying factors. REVIEW OF SYSTEMS: Ten systems reviewed and are negative unless otherwise noted in the HPI PCP: Dr. Ogden SPECIALISTS: Rheumatologic PAST MEDICAL HISTORY: Rheumatoid arthritis PAST SURGICAL HISTORY: Cholecystectomy June 2017 SOCIAL HISTORY: Nonsmoker. No drug or alcohol use. 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 visual bravo intact by confrontation ENT, Mouth: Mucous membranes moist. Airway patent Neck: Normal inspection, supple, non-tender Respiratory: Lungs are clear to auscultation. No wheezing, rhonchi or crackles Cardiovascular: Regular rate and rhythm. No murmur. Symmetric DP pulses 2+. Symmetric PT pulses 2+. Neurological: GCS 15. Cranial nerves 2-12 grossly intact. A&O, nonfocal, normal gait. Strength is symmetric in lower extremities. No pronator drift. Normal finger to nose. Skin: Warm and dry, no rash no erythema or cellulitis. No petechiae or purpura. Extremities: Point tenderness to the left calf. No pain with active or passive range of motion of the ankles. No palpable cords or evidence of DVT. Range of motion is symmetric in the lower extremities. Psychiatric: Mood and affect normal DIFFERENTIAL DIAGNOSES: Including but not limited to muscular strain, muscle spasm, DVT, dehydration, electrolyte disturbance, cephalgia MDM: 9:00 p.m. Left calf pain with mild headache and intermittent blurred vision. Visual bravo are intact by confrontation. Neuro exam is within normal limits. Left calf pain does appear to be pinpoint, but I will order ultrasound to rule out DVT as she has concern for this. Vital signs are within normal limits. She has no meningeal signs. Laboratory studies have been ordered. She is resting comfortably in no acute distress. 9:40 p.m. Laboratory studies are within normal limits. Ultrasound of the left lower extremity is pending 10:20 p.m. Notified by radiologist Dr. Roland. Ultrasound left lower extremity is negative for DVT. 10:30 p.m. Patient re-evaluated. I discussed the ultrasound findings and laboratory studies. Suspected musculoskeletal involvement. At this time she has no blurred vision. Her headache is mild intolerable. I do feel she is stable for discharge home with follow up with primary care physician. We discussed ED precautions for worsening symptoms, double vision, neck pain or stiffness. She is comfortable this plan, well-appearing and discharged home stable condition SUPERVISION: Patient was independently examined, but I discussed the case with my secondary supervising physician Dr. Miller - Diagnostics Imaging Results: Imaging Impressions Extremity Venous Study 11/14/17 20:57 Impression: No evidence of deep vein thrombosis in the left lower extremity. Results called and discussed with Filiberto George [facility] on 11/14/2017 at 22:19 - History Smoking Status: Never smoked - Objective Vital Signs: Initial Vital Signs Temperature (C) 98.1 F 11/14/17 20:31 Heart Rate 62 11/14/17 20:31 Respiratory Rate 16 11/14/17 20:31 Blood Pressure 124/79 H 11/14/17 20:31 O2 Sat (%) 98 11/14/17 20:31 O2 Delivery Mode Room Air Allergies/Adverse Reactions: ciprofloxacin Allergy (Intermediate, Verified 11/14/17 20:35) Penicillins Allergy (Intermediate, Verified 11/14/17 20:35) Home Medications: Medication Instructions Recorded Etanercept [Enbrel] 50 mg SQ MO 04/23/17 Herbals/Supplements -Info Only 1 each PO DAILY 06/30/17 Multivitamins [Multivitamin (*)] 1 each PO DAILY 07/04/17 Laboratory Results: Laboratory Results 11/14/17 21:04 11/14/17 21:04 11/14/17 11/14/17 11/14/17 21:04 21:04 21:04 WBC 8.98 10^3/uL 10^3/uL (3.80-9.50) RBC 4.66 10^6/uL 10^6/uL (4.18-5.33) Hgb 14.7 g/dL g/dL (12.6-16.3) Hct 43.0 % % (38.0-47.0) MCV 92.3 fL fL (81.5-99.8) MCH 31.5 pg pg (27.9-34.1) MCHC 34.2 g/dL g/dL (32.4-36.7) RDW 12.7 % % (11.5-15.2) Plt Count 319 10^3/uL 10^3/uL (150-400) MPV 9.6 fL fL (8.7-11.7) Neut % (Auto) 48.6 % % (39.3-74.2) Lymph % (Auto) 40.4 % % (15.0-45.0) [place] % (Auto) 8.9 % % (4.5-13.0) Eos % (Auto) 1.3 % % (0.6-7.6) Baso % (Auto) 0.6 % % (0.3-1.7) Nucleat RBC Rel Count 0.0 % % (0.0-0.2) Absolute Neuts (auto) 4.36 10^3/uL 10^3/uL (1.70-6.50) Absolute Lymphs (auto) 3.63 10^3/uL H 10^3/uL (1.00-3.00) Absolute Monos (auto) 0.80 10^3/uL 10^3/uL (0.30-0.80) Absolute Eos (auto) 0.12 10^3/uL 10^3/uL (0.03-0.40) Absolute Basos (auto) 0.05 10^3/uL 10^3/uL (0.02-0.10) Absolute Nucleated RBC 0.00 10^3/uL 10^3/uL (0-0.01) Immature Gran % 0.2 % % (0.0-1.1) Immature Gran # 0.02 10^3/uL 10^3/uL (0.00-0.10) Sodium 138 mEq/L mEq/L (135-145) Potassium 3.9 mEq/L mEq/L (3.5-5.2) Chloride 103 mEq/L mEq/L (97-110) Carbon Dioxide 23 mEq/l mEq/l (22-31) Anion Gap 12 mEq/L mEq/L (8-16) BUN 14 mg/dL mg/dL (7-23) Creatinine 0.7 mg/dL mg/dL (0.6-1.0) Estimated GFR > 60 Glucose 92 mg/dL mg/dL (70-100) Calcium 9.8 mg/dL mg/dL (8.5-10.4) Magnesium 1.8 mg/dL mg/dL (1.6-2.3) CK-MB (CK-2) Fraction 0.34 ng/mL ng/mL (0.00-3.19) Beta HCG, Qual NEGATIVE Departure - Departure Disposition: Home, Routine, Self-Care Clinical Impression: Pain of left calf, Blurred vision, bilateral Cephalgia Qualifiers: Headache type: unspecified Headache chronicity pattern: acute headache Intractability: not intractable Qualified Code(s): R51 - Headache Condition: Good Instructions: Acute Headache (DC), Musculoskeletal Pain (ED), Blurred Vision ( ED) Additional Instructions: 1. Medications [id number] as discussed as needed 2. Contact her primary care provider 3. Contact the fiber technologist if symptoms persist 4. ED precautions for change in symptoms, neck pain or stiffness, double vision Referrals: Judy Ogden PA [Primary Care Provider] - As per Instructions Juliano Espino MD [Medical Doctor] - As per Instructions Stand Alone Forms: Work Excuse
[2017-11-14 21:12] LABS: PLATELET COUNT 319 10^3/uL (150-400)
[2017-11-14 22:56] VITALS: BP 117/76; PULSE 56
== END 2017-11-14 22:56 | disposition home or self-care (01) ==
DX: R51 Headache (principal); M79.662 Pain in left lower leg; H53.8 Other visual disturbances

== ENCOUNTER 2018-11-24 14:19 | Observation (INO) | payer OTHER ==
[2018-11-24 15:45] LABS: PLATELET COUNT 303 10^3/uL (150-400)
--- NOTE | 2018-11-24 15:55 | EDPHY ---
H & P Time Seen by Provider: 11/24/18 15:16 HPI/ROS: Chief complaint. Abdominal pain HPI. Patient is a 28 year old female with history of laparoscopic cholecystectomy June 2017. She presents with 2 day history sharp right upper quadrant pain. Yesterday pain seemed to go to the lower right side. She has nausea. No vomiting or diarrhea. No fever. No urinary symptoms. No chest pain or shortness of breath. Pain is better if she hunches over and worse with stretching out. No pain in the back ROS 10 systems were reviewed and negative with the exception of the elements mentioned in the history of present illness Past Medical/Surgical History: Laparoscopic cholecystectomy Social History: , nonsmoker, no alcohol Smoking Status: Never smoked Physical Exam: General Appearance: Alert well-developed female mild distress vital signs are stable Eyes: Pupils equal and round no pallor or injection. ENT, Mouth: Mucous membranes are moist. Respiratory: There are no retractions, lungs are clear to auscultation. Cardiovascular: Regular rate and rhythm. Gastrointestinal: Abdomen is soft with tenderness in the right upper quadrant. Minimal discomfort at McBurney's point. She has right adnexal pain. No masses. Normal bowel sounds Neurological: Awake and alert, sensory and motor exams grossly normal. Skin: Warm and dry, no rashes. Musculoskeletal: Neck is supple nontender. Extremities symmetrical, full range of motion. Psychiatric: Patient is oriented X 3, there is no agitation. Constitutional: Initial Vital Signs Temperature (C) 36.9 C 11/24/18 14:59 Heart Rate 59 L 11/24/18 14:59 Respiratory Rate 16 11/24/18 14:59 Blood Pressure 117/70 11/24/18 14:59 O2 Sat (%) 98 11/24/18 14:59 O2 Delivery Mode Room Air Allergies/Adverse Reactions: ciprofloxacin Allergy (Intermediate, Verified 11/24/18 21:23) Penicillins Allergy (Intermediate, Verified 11/24/18 21:23) Home Medications: Medication Instructions Recorded Etanercept [Enbrel] 50 mg SQ Q7D 11/24/18 FOLIC ACID 0.4 mg PO DAILY 11/24/18 Herbals/Supplements -Info Only 1 ea PO DAILY 11/24/18 Vit27&Calcium/Iron/FA 1 each PO DAILY 11/24/18 [] Medical Decision Making - Diagnostics Imaging Results: Imaging Impressions Abdomen Ultrasound 11/24/18 16:03 Impression: A small portion of the appendix is visualized, and that which is identified appears normal. If there is further clinical concern regarding the patient's right lower quadrant pain, contrast-enhanced CT imaging could be considered. Findings were discussed with BUD MATHUR MD at 17:41, on 11/24/2018. Pelvic/Renal Ultrasound 11/24/18 16:03 Impression: 1. Normal appearance of the endometrium and ovaries. There is no evidence of torsion or dominant adnexal mass. 2. Small amount of free fluid, with nonspecific features. Findings were discussed with BUD MATHUR MD at 17:47, on 11/24/2018. Abdomen Ultrasound 11/24/18 17:45 Impression: Status post cholecystectomy, with no evidence of bile duct dilatation. Findings were discussed with BUD MATHUR MD at 18:27, on 11/24/2018. Pelvic ultrasound is normal with trace free fluid. Ultrasound appendix shows portion of the appendix visualized which appears normal Ultrasound right upper quadrant shows status post cholecystectomy no obvious bile duct dilatation. These ultrasounds are reviewed by me and discussed with Radiology Procedures: Old records are reviewed IV normal saline. Zofran for nausea ED Course/Re-evaluation: Consulted discussed case with Dr. Medellin who agrees to the admission Patient and I discussed imaging and lab results. We discussed treatment plan including recommendation for admission. She expresses understanding and agreement Differential Diagnosis: Patient's pancreatitis. The cause can be idiopathic, autoimmune, retained common bile duct stone post cholecystectomy - Data Points Laboratory Results: Laboratory Results 11/24/18 15:20 11/24/18 15:20 11/24/18 11/24/18 11/24/18 15:20 15:20 15:20 WBC RBC Hgb Hct MCV MCH MCHC RDW Plt Count MPV Neut % (Auto) Lymph % (Auto) [place] % (Auto) Eos % (Auto) Baso % (Auto) Nucleat RBC Rel Count Absolute Neuts (auto) Absolute Lymphs (auto) Absolute Monos (auto) Absolute Eos (auto) Absolute Basos (auto) Absolute Nucleated RBC Immature Gran % Immature Gran # Sodium Potassium Chloride Carbon Dioxide Anion Gap BUN Creatinine Estimated GFR Glucose Calcium Total Bilirubin 0.7 mg/dL mg/dL (0.1-1.4) Conjugated Bilirubin 0.4 mg/dL mg/dL (0.0-0.5) Unconjugated Bilirubin 0.3 mg/dL mg/dL (0.0-1.1) AST 21 IU/L IU/L (14-46) ALT 18 IU/L IU/L (9-52) Alkaline Phosphatase 57 IU/L IU/L (38-126) Total Protein 7.8 g/dL g/dL (6.3-8.2) Albumin 4.6 g/dL g/dL (3.5-5.0) Lipase 409 IU/L H IU/L (23-300) Beta HCG, Qual NEGATIVE Urine Color YELLOW Urine Appearance CLEAR Urine pH 6.0 (5.0-7.5) Ur Specific [place] 1.018 (1.002-1.030) Urine Protein NEGATIVE (NEGATIVE) Urine Ketones NEGATIVE (NEGATIVE) Urine Blood NEGATIVE (NEGATIVE) Urine Nitrate NEGATIVE (NEGATIVE) Urine Bilirubin NEGATIVE (NEGATIVE) Urine Urobilinogen 2.0 EU H EU (0.2-1.0) Ur Leukocyte Esterase NEGATIVE (NEGATIVE) Urine Glucose NEGATIVE (NEGATIVE) 11/24/18 11/24/18 15:20 15:20 WBC 7.69 10^3/uL 10^3/uL (3.80-9.50) RBC 4.49 10^6/uL 10^6/uL (4.18-5.33) Hgb 14.0 g/dL g/dL (12.6-16.3) Hct 42.2 % % (38.0-47.0) MCV 94.0 fL fL (81.5-99.8) MCH 31.2 pg pg (27.9-34.1) MCHC 33.2 g/dL g/dL (32.4-36.7) RDW 12.5 % % (11.5-15.2) Plt Count 303 10^3/uL 10^3/uL (150-400) MPV 9.9 fL fL (8.7-11.7) Neut % (Auto) 55.7 % % (39.3-74.2) Lymph % (Auto) 32.9 % % (15.0-45.0) [place] % (Auto) 8.6 % % (4.5-13.0) Eos % (Auto) 2.0 % % (0.6-7.6) Baso % (Auto) 0.5 % % (0.3-1.7) Nucleat RBC Rel Count 0.0 % % (0.0-0.2) Absolute Neuts (auto) 4.29 10^3/uL 10^3/uL (1.70-6.50) Absolute Lymphs (auto) 2.53 10^3/uL 10^3/uL (1.00-3.00) Absolute Monos (auto) 0.66 10^3/uL 10^3/uL (0.30-0.80) Absolute Eos (auto) 0.15 10^3/uL 10^3/uL (0.03-0.40) Absolute Basos (auto) 0.04 10^3/uL 10^3/uL (0.02-0.10) Absolute Nucleated RBC 0.00 10^3/uL 10^3/uL (0-0.01) Immature Gran % 0.3 % % (0.0-1.1) Immature Gran # 0.02 10^3/uL 10^3/uL (0.00-0.10) Sodium 140 mEq/L mEq/L (135-145) Potassium 3.9 mEq/L mEq/L (3.5-5.2) Chloride 108 mEq/L mEq/L (97-110) Carbon Dioxide 23 mEq/l mEq/l (22-31) Anion Gap 9 mEq/L mEq/L (6-14) BUN 16 mg/dL mg/dL (7-23) Creatinine 0.7 mg/dL mg/dL (0.6-1.0) Estimated GFR > 60 Glucose 92 mg/dL mg/dL (70-100) Calcium 9.6 mg/dL mg/dL (8.5-10.4) Total Bilirubin Conjugated Bilirubin Unconjugated Bilirubin AST ALT Alkaline Phosphatase Total Protein Albumin Lipase Beta HCG, Qual Urine Color Urine Appearance Urine pH Ur Specific [place] Urine Protein Urine Ketones Urine Blood Urine Nitrate Urine Bilirubin Urine Urobilinogen Ur Leukocyte Esterase Urine Glucose Medications Given: Hydromorphone HCl (Dilaudid) 0.2 - 0.4 mg IVP Q2HRS PRN PRN Reason: Pain, Severe Unable to Take PO Stop: 12/04/18 22:16 Last Admin: 11/24/18 22:40 Dose: 0.2 mg Sodium Chloride (Ns) 1,000 mls @ 0 mls/hr IV CONT DILAN PRN Reason: TKO Stop: 05/23/19 19:14 Last Admin: 11/24/18 22:33 Dose: 1,000 mls Sodium Chloride (Ns) 1,000 mls @ 100 mls/hr IV CONT DILAN Stop: 05/23/19 22:29 Last Admin: 11/24/18 23:11 Dose: 1,000 mls Discontinued Medications Fentanyl (Sublimaze) 50 mcg IVP EDNOW ONE Stop: 11/24/18 17:05 Last Admin: 11/24/18 17:06 Dose: 50 mcg Sodium Chloride (Ns) 1,000 mls @ 0 mls/hr IV ONCE ONE PRN Reason: Wide Open Stop: 11/24/18 19:15 Last Admin: 11/24/18 17:00 Dose: 1,000 mls Ondansetron HCl (Zofran) 4 mg IVP EDNOW ONE Stop: 11/24/18 16:03 Last Admin: 11/24/18 16:10 Dose: 4 mg Departure - Departure Disposition: [facility] In[facility] Acute Clinical Impression: Pancreatitis Qualifiers: Chronicity: acute Pancreatitis type: unspecified pancreatitis type Acute pancreatitis complication: no infection or necrosis Qualified Code(s): K85.90 - Acute pancreatitis without necrosis or infection, unspecified Condition: Fair
[2018-11-24] MEDS ORDERED: ONDANSETRON 4 MG/2 ML VIAL IVP ONE (16:02)
[2018-11-24] MEDS ORDERED: fentaNYL 100 MCG/2 ML INJ ONE (17:01)
[2018-11-24] MEDS ORDERED: fentaNYL 100 MCG/2 ML INJ IVP ONE (17:04)
[2018-11-24] MEDS ORDERED: NS 1,000 ML IV ONE (19:14)
[2018-11-24] MEDS: NS 1,000 ML IV SCH ×2 (19:17→22:33)
[2018-11-24] MEDS ORDERED: ONDANSETRON 4 MG/2 ML VIAL IVP PRN (22:17)
[2018-11-24] MEDS ORDERED: oxyCODONE IR 5 MG TAB PO PRN (22:17)
[2018-11-24] MEDS ORDERED: ACETAMINOPHEN 325 MG TAB PO PRN (22:17)
[2018-11-24] MEDS ORDERED: traMADol 50 MG TAB PO PRN (22:17)
[2018-11-24] MEDS ORDERED: HYDROmorphONE/DILAUDID 1 MG/ML INJ IVP PRN (22:17)
[2018-11-24] MEDS ORDERED: PROMETHAZINE HCL 25 MG/ML INJ IVP PRN (22:17)
[2018-11-24] MEDS ORDERED: NS 1,000 ML IV SCH (22:30)
--- NOTE | 2018-11-25 00:25 | GHP ---
[f rep st] HISTORY AND PHYSICAL DATE OF ADMISSION: 11/24/2018 CHIEF COMPLAINT: Right upper quadrant pain. HISTORY OF PRESENT ILLNESS: The patient is a 28-year-old female, who presents with chief complaint o f right upper quadrant pain. She had her gallbladder out in June 2007. Since then she has had intermittent right upper quadrant pain but she had always ignored it, as she knew her gallbladder had already been removed. night she developed a showed sharp severe right upper quadrant pain. She called the [facility] nurse line and was recommended she take an antacid. This did not help. Then th e pain moved down into her right lower quadrant and today she had some pain around her belly button r adiating toward her back. She denies any nausea, vomiting or diarrhea. There has been no flank pain . She has been able to eat normally. She has had normal BMs. There has been no fever. The pain fe els similar to what she had prior to her cholecystectomy. PAST MEDICAL HISTORY: Rheumatoid arthritis. PAST SURGICAL HISTORY: Cholecystectomy June 2017. MEDICATIONS: Please see computer record for full detailed list. ALLERGIES: Penicillin and Cipro. SOCIAL HISTORY: No smoking. She has an alcoholic beverage 1-2 times per month. She lives with her and their 3-year-old son. 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 REVIEW OF SYSTEMS: Complete review of systems obtained. Review of systems negative regarding consti tutional, HEENT, GI, pulmonary, breast, , hematology, skin, muscular, endocrine, psych except for p ositives as in HPI. FAMILY HISTORY: Reviewed, noncontributory to presenting complaint. PHYSICAL EXAMINATION: GENERAL APPEARANCE: Well-developed, well-nourished female, in no acute distre ss. VITAL SIGNS: Temperature is 37.5, pulse 55, blood pressure 113/65, satting 96% on room air. EY ES: Normal conjunctivae. Pupils round and reactive to light. ENT: Normal ears, nose. Hearing int act. Normal teeth. Oropharynx moist. NECK: Trachea midline. No thyromegaly. CHEST: Normal resp iratory effort. Lungs are clear to auscultation bilaterally. CARDIOVASCULAR: Regular rate and rhyt hm. No murmur. No lower extremity edema. ABDOMEN: Soft, nontender. No hepatosplenomegaly. SKIN: Warm, dry, intact. No rash. MUSCULOSKELETAL: No cyanosis or clubbing. Strength 5/5 upper and lo wer extremities. NEURO: Cranial nerves are intact. Normal sensation to light touch. PSYCH: Alert and oriented x3. Normal affect. Normal judgment. Normal memory. LABORATORY DATA: White count 7.69, hematocrit 42.2, platelets 303. Sodium 140, potassium 3.9, chlor lori 103, bicarb 23, BUN 16, creatinine 0.7, glucose 92. test is negative. Urinalysis is n egative. Lipase is 409. Abdominal ultrasound is normal status post cholecystectomy. Pelvic ultraso und is negative. This case was personally discussed with Dr. Elmer Cochran regarding emergency room c ourse. ASSESSMENT AND PLAN: 1. Abdominal pain. Her lipase is 409; however, the upper limit of normal is 300, so this is a very marginal increase, and it is unclear to me if this represents a true pancreatitis. I think this is l ess likely. Will keep her n.p.o. tonight and recheck a lipase in the morning. If her pain continues , could consider further workup with GI consultation for EGD versus abdominal CT scanning. Will re-e valuate tomorrow morning. 2. Rheumatoid arthritis. Continue her weekly Enbrel. CODE STATUS: Full. ADMISSION STATUS: Will admit to observation. Reevaluate tomorrow for ongoing need for hospitalizati on. DVT PROPHYLAXIS: She is low risk. /[id number]/MODL
[2018-11-25] MEDS ORDERED: PRENATAL VIT 1 EACH TAB PO SCH (09:00)
[2018-11-25] MEDS ORDERED: FOLIC ACID 1 MG TAB PO SCH (09:00)
[2018-11-25 12:04] VITALS: BP 107/61
[2018-11-25] MEDS ORDERED: IOHEXOL 300 mgI/ML (OMNIPAQUE) 150 ML BTL IV ONE (12:07)
--- NOTE | 2018-11-25 15:51 | ASMTLACE ---
KARI Length of stay for Answers: 1 day current admission Acuity / Level of Answers: Yes Care: Did the patient have an inpatient admission? Comorbidities - select Answers: Other Notes: Rheumatoid all that apply arthritis, gallstones w/ prior anibal # of Emergency department Answers: 1-2 visits in the last 6 months Score: 6 Date Signed: 11/25/2018 03:51 PM Electronically Signed By:Ruth Madison RN
--- NOTE | 2018-11-25 16:07 | ASDISCHSUM ---
Discharge Information Plan Status:Home with No Needs Medically Cleared to Leave:11/24/2018 Discharge Date:11/25/2018 03:49 PM CM D/C Disposition:Home, Routine, Self-Care ADT D/C Disposition:Home, Routine, Self-Care Projected Discharge Date:11/25/2018 03:49 PM Transportation at D/C:Family Discharge Delay Reason: Follow-Up Date:11/25/2018 03:49 PM Discharge Slot:2 - 12:01 pm - 18:00 pm Final Diagnosis:Right upper quadrant pain, hx gallstones with anibal, rheumatoid arthritis Placement Information Patient Contact Information Contact Name:BARRY Relationship: Address:[address] [place] [address] [address] City:[place] Alternate Phone: State/Zip Code:[place] [address] Email: Financial Information Financial Class:[employer] Primary Plan Desc:[facility] Primary Plan Number:[id number] Secondary Plan Desc: Secondary Plan Number: Assessment Information LACE LACE Length of stay for Answers: 1 day current admission Acuity / Level of Answers: Yes Care: Did the patient have an inpatient admission? Comorbidities - select Answers: Other Notes: Rheumatoid all that apply arthritis, gallstones w/ prior anibal # of Emergency department Answers: 1-2 visits in the last 6 months Score: 6 Date Signed: 11/25/2018 03:51 PM Electronically Signed By:Ruth Madison RN [facility] Progress Note CM Note CM Note Notes: Reviewed chart. Pt presented to the Emergency Department with right upper quadrant pain. History includes gallstones with prior anibal in June 2017 and rheumatoid arthritis. Pt and lives with her and 3 yr old son in [place]. Per MD notes, pt to discharge home independently with family support and no identified needs. Pt to follow up as directed. No IM/CULVER forms signed, not applicable. CM available for any further issues or concerns. Discharge Plan: Home independently with family support Date Signed: 11/25/2018 04:06 PM Electronically Signed By:Ruth Madison RN Intervention Information Intervention Type:*Incorrect Registration Date of Service:11/25/2018 10:49 AM Patient Type:Inpatient Staff Member:PREM Gregoyr, Cece Hours: Discipline: Severity: Comment:
== END 2018-11-25 15:49 | disposition home or self-care (01) ==
LOC: INTOOBSV 20:30 → F3E 22:12
PROVIDERS: ADMIT Internal Medicine; ATTEND Internal Medicine
DX: K85.90 Acute pancreatitis without necrosis or infection, unspecified (principal); M06.9 Rheumatoid arthritis, unspecified; Z90.49 Acquired absence of other specified parts of digestive tract
CPT/HCPCS: 74177; 76705; 76856; G0378; J1170; J2405; J3010; Q9967

== ENCOUNTER 2018-12-05 22:33 | Inpatient (IN) | payer OTHER ==
--- NOTE | 2018-12-05 22:52 | EDPHY ---
H & P Stated Complaint: R side pain, dx w/kidney stones & ruptured ovarian cyst, high lipase, PAIN Time Seen by Provider: 12/05/18 22:40 HPI/ROS: CHIEF COMPLAINT: Right flank pain since noon today HISTORY OF PRESENT ILLNESS: 28-year-old female history of rheumatoid arthritis on chronic immune suppression with Enbrel, recently hospitalized for abdominal pain [facility], arrives via private vehicle complaining of acute right flank pain started at approximately noon today. Pain described as worse with palpation and movement. Nonpleuritic. She also is complaining of subjective fever as well as nausea and loose stool. No melena hematochezia. Urinary habits have been normal with no dysuria , hematuria or increased frequency. She has otherwise been feeling well since her discharge from the hospital 10 days ago. Denies: Flu-like symptoms, chest pain, dyspnea, cough, syncope, near syncope. REVIEW OF SYSTEMS: 10 systems reviewed and negative with the exception of the elements mentioned in the history of present illness PAST MEDICAL & SURGICAL HISTORY: Rheumatoid arthritis with chronic Enbrel immune suppression. SOCIAL HISTORY:Nonsmoker PHYSICAL EXAM (Prior to examination, patient consented to physical exam, hands were washed and my usual and customary physical exam procedures followed) 1) GENERAL: Well-developed, well-nourished, alert and oriented. Appears nontoxic and appears to be in no acute distress. 2) HEAD: Normocephalic, atraumatic 3) HEENT: Pupils equal, round, reactive to light bilaterally. Sclera anicteric. Nasopharynx, oropharynx, clear, no lesions. Moist Mucous membranes. 4) NECK: Full range of motion, no meningeal signs. 5) LUNGS: Clear auscultation bilaterally, no wheezes, no rhonchi, no retractions. 6) HEART: Regular rate and rhythm, no murmur, no heave, no gallop. 7) ABDOMEN: No guarding, no rebound, no focal tenderness, negative McBurney's, negative Monae's, negative Rovsing's, negative peritoneal sign, unable to elicit any abdominal pain. 8) MUSCULOSKELETAL: Moving all extremities, no focal areas of tenderness, no obvious trauma. No peripheral edema or discoloration. 9) BACK: Positive right CVA tenderness, no midline vertebral tenderness, no fluctuance, no step-off, no obvious trauma, no visual or palpable abnormality. 10) SKIN: No rash, no petechiae. 11) Psychiatric: Patient is oriented X 3, there is no agitation. DIFFERENTIAL DIAGNOSIS: In no particular order including but not limited to nephrolithiasis, pyelonephritis, ureterolithiasis, biliary obstruction, acute pancreatitis - Personal History LMP (Females 10-55): Now Current Tetanus Diphtheria and Acellular Pertussis (TDAP): Yes Tetanus Vaccine Date: WITHIN 10 YRS - Medical/Surgical History Hx Asthma: No Hx Chronic Respiratory Disease: No Hx Diabetes: No Hx Cardiac Disease: No Hx Renal Disease: No Hx Cirrhosis: No Hx Alcoholism: No Hx HIV/AIDS: No Hx Splenectomy or Spleen Trauma: No Other PMH: Bernie barnett 2016 - Social History Smoking Status: Never smoked Constitutional: Initial Vital Signs Temperature (C) 37.5 C 12/05/18 22:35 Heart Rate 105 H 12/05/18 22:35 Respiratory Rate 16 12/05/18 22:35 Blood Pressure 112/72 12/05/18 22:35 O2 Sat (%) 94 12/05/18 22:35 O2 Delivery Mode Room Air Allergies/Adverse Reactions: ciprofloxacin Allergy (Intermediate, Verified 12/05/18 22:38) Penicillins Allergy (Intermediate, Verified 12/05/18 22:38) Home Medications: Medication Instructions Recorded Etanercept [Enbrel Sureclick] 50 mg SQ Q7D 11/24/18 FOLIC ACID 0.4 mg PO DAILY 11/24/18 Herbals/Supplements -Info Only 1 ea PO DAILY 11/24/18 Vit27&Calcium/Iron/FA 1 each PO DAILY 11/24/18 [] Medical Decision Making - Diagnostics Imaging Results: Imaging Impressions Abdomen/Pelvis Ultrasound 12/05/18 22:47 Impression: 1. No hydronephrosis. 2. Nonobstructive calculus upper pole right kidney. Findings discussed with Noam PAK at 23:52 hour, 12/05/2018. Images reviewed myself ED Course/Re-evaluation: 10:51 p.m.: I reviewed the patient's old medical records. We discussed possible etiologies for right flank pain which include, but not limited to, nephrolithiasis, pyelonephritis. Will obtain diagnostic studies including urinalysis, serum studies as well as renal ultrasonography. Will hold on CT imaging as she had CT imaging performed within the past 2 weeks in order to minimize ionizing radiation at this time. 11:58 p.m.: Patient has been re-evaluated with serial examinations. She requests dose of morphine with antiemetic 12:15 a.m.: Re-evaluation, called the patient's bedside as she was now complaining of midsternal chest pain. She is hyperventilating, crying. Will check EKG, chest x-ray administer IV Ativan. Patient and I discussed discharge. Recommended hospital admission. - Data Points Laboratory Results: Laboratory Results 12/05/18 23:03 12/05/18 23:03 12/05/18 12/05/18 12/05/18 23:03 23:03 23:03 WBC RBC Hgb Hct MCV MCH MCHC RDW Plt Count MPV Neut % (Auto) Lymph % (Auto) [place] % (Auto) Eos % (Auto) Baso % (Auto) Nucleat RBC Rel Count Absolute Neuts (auto) Absolute Lymphs (auto) Absolute Monos (auto) Absolute Eos (auto) Absolute Basos (auto) Absolute Nucleated RBC Immature Gran % Immature Gran # Sodium 137 mEq/L mEq/L (135-145) Potassium 3.8 mEq/L mEq/L (3.5-5.2) Chloride 104 mEq/L mEq/L (97-110) Carbon Dioxide 23 mEq/l mEq/l (22-31) Anion Gap 10 mEq/L mEq/L (6-14) BUN 15 mg/dL mg/dL (7-23) Creatinine 0.7 mg/dL mg/dL (0.6-1.0) Estimated GFR > 60 Glucose 109 mg/dL H mg/dL (70-100) Calcium 9.4 mg/dL mg/dL (8.5-10.4) Total Bilirubin 2.3 mg/dL H mg/dL (0.1-1.4) Conjugated Bilirubin 0.3 mg/dL mg/dL (0.0-0.5) Unconjugated Bilirubin 2.0 mg/dL H mg/dL (0.0-1.1) AST 22 IU/L IU/L (14-46) ALT 22 IU/L IU/L (9-52) Alkaline Phosphatase 68 IU/L IU/L (38-126) Total Protein 7.9 g/dL g/dL (6.3-8.2) Albumin 4.7 g/dL g/dL (3.5-5.0) Lipase 112 IU/L IU/L (23-300) Beta HCG, Qual NEGATIVE Urine Color YELLOW Urine Appearance CLEAR Urine pH 5.0 (5.0-7.5) Ur Specific [place] 1.023 (1.002-1.030) Urine Protein NEGATIVE (NEGATIVE) Urine Ketones TRACE H (NEGATIVE) Urine Blood NEGATIVE (NEGATIVE) Urine Nitrate NEGATIVE (NEGATIVE) Urine Bilirubin NEGATIVE (NEGATIVE) Urine Urobilinogen 2.0 EU H EU (0.2-1.0) Ur Leukocyte Esterase NEGATIVE (NEGATIVE) Urine RBC 1-3 /hpf /hpf (0-3) Urine WBC 1-3 /hpf /hpf (0-3) Ur Epithelial Cells TRACE /lpf /lpf (NONE-1+) Urine Mucus TRACE /lpf /lpf (NONE-1+) Urine Glucose NEGATIVE (NEGATIVE) 12/05/18 23:03 WBC 8.27 10^3/uL 10^3/uL (3.80-9.50) RBC 4.50 10^6/uL 10^6/uL (4.18-5.33) Hgb 14.1 g/dL g/dL (12.6-16.3) Hct 42.7 % % (38.0-47.0) MCV 94.9 fL fL (81.5-99.8) MCH 31.3 pg pg (27.9-34.1) MCHC 33.0 g/dL g/dL (32.4-36.7) RDW 12.7 % % (11.5-15.2) Plt Count 275 10^3/uL 10^3/uL (150-400) MPV 9.7 fL fL (8.7-11.7) Neut % (Auto) 83.3 % H % (39.3-74.2) Lymph % (Auto) 7.9 % L % (15.0-45.0) [place] % (Auto) 7.0 % % (4.5-13.0) Eos % (Auto) 1.2 % % (0.6-7.6) Baso % (Auto) 0.4 % % (0.3-1.7) Nucleat RBC Rel Count 0.0 % % (0.0-0.2) Absolute Neuts (auto) 6.89 10^3/uL H 10^3/uL (1.70-6.50) Absolute Lymphs (auto) 0.65 10^3/uL L 10^3/uL (1.00-3.00) Absolute Monos (auto) 0.58 10^3/uL 10^3/uL (0.30-0.80) Absolute Eos (auto) 0.10 10^3/uL 10^3/uL (0.03-0.40) Absolute Basos (auto) 0.03 10^3/uL 10^3/uL (0.02-0.10) Absolute Nucleated RBC 0.00 10^3/uL 10^3/uL (0-0.01) Immature Gran % 0.2 % % (0.0-1.1) Immature Gran # 0.02 10^3/uL 10^3/uL (0.00-0.10) Sodium Potassium Chloride Carbon Dioxide Anion Gap BUN Creatinine Estimated GFR Glucose Calcium Total Bilirubin Conjugated Bilirubin Unconjugated Bilirubin AST ALT Alkaline Phosphatase Total Protein Albumin Lipase Beta HCG, Qual Urine Color Urine Appearance Urine pH Ur Specific [place] Urine Protein Urine Ketones Urine Blood Urine Nitrate Urine Bilirubin Urine Urobilinogen Ur Leukocyte Esterase Urine RBC Urine WBC Ur Epithelial Cells Urine Mucus Urine Glucose Medications Given: Discontinued Medications Lorazepam (Ativan Injection) 1 mg IVP EDNOW ONE Stop: 12/06/18 00:15 Last Admin: 12/06/18 00:18 Dose: 1 mg Morphine Sulfate (Morphine) 4 mg IVP EDNOW ONE Stop: 12/05/18 23:44 Last Admin: 12/05/18 23:51 Dose: 4 mg Ondansetron HCl (Zofran) 4 mg IVP EDNOW ONE Stop: 12/05/18 23:44 Last Admin: 12/05/18 23:50 Dose: 4 mg Departure - Departure Disposition: [facility] Inpatient Acute Clinical Impression: Flank pain, acute Condition: Good Additional Instructions: Return to the emergency department immediately if you develop fevers, flu-like symptoms, vomiting, abdominal pain, shortness of breath, or any other symptoms that concern you.
[2018-12-05 23:10] LABS: PLATELET COUNT 275 10^3/uL (150-400)
[2018-12-05] MEDS ORDERED: ONDANSETRON 4 MG/2 ML VIAL IVP ONE (23:43)
[2018-12-06] MEDS ORDERED: OXYCODONE/APAP 5/325MG PREPACK#4 BTL TAKEHOME ONE (00:02)
[2018-12-06] MEDS ORDERED: ONDANSETRON 4MG PREPACK#2 BTL TAKEHOME ONE (00:02)
[2018-12-06] MEDS ORDERED: LORazepam 2 MG/ML INJ IVP ONE (00:14)
[2018-12-06] MEDS ORDERED: LIDOCAINE 2% VISCOUS 15 ML UDCUP PO ONE (00:24)
[2018-12-06] MEDS ORDERED: MAG HYDROX/AL HYDROX/SIMETH 30 ML UDCUP PO ONE (00:24)
[2018-12-06] MEDS ORDERED: HYOSCYAMINE SULFATE 0.125 MG TAB PO ONE (00:24)
[2018-12-06] MEDS ORDERED: HYDROmorphONE/DILAUDID 1 MG/ML INJ IVP PRN (00:35)
[2018-12-06] MEDS ORDERED: PROMETHAZINE HCL 25 MG/ML INJ IVP PRN (00:35)
[2018-12-06] MEDS ORDERED: ACETAMINOPHEN 325 MG TAB PO PRN (00:35)
[2018-12-06] MEDS ORDERED: ONDANSETRON DISINTEGRATING 4 MG TAB PO PRN (00:35)
[2018-12-06] MEDS ORDERED: ONDANSETRON 4 MG/2 ML VIAL IVP PRN (00:35)
[2018-12-06] MEDS ORDERED: oxyCODONE IR 5 MG TAB PO PRN (00:35)
[2018-12-06] MEDS ORDERED: KETOROLAC 15 MG/1 ML SDV IVP PRN ×2 (01:15→21:57)
[2018-12-06] MEDS ORDERED: TAMSULOSIN HCL 0.4 MG CAP PO SCH (01:15)
[2018-12-06] MEDS: NS 1,000 ML IV SCH ×3 (01:20→15:04)
--- NOTE | 2018-12-06 04:55 | PDGENHP ---
History and Physical - Chief Complaint R flank pain - History of Present Illness 28 yo F w/ hx of RA presents with R flank pain. The patient was admitted 11/24- with similar pain. During that admission she also had RLQ pain. Her pain was thought to be due to R ovarian cyst rupture and R non-obstructive nephrolithiasis. She tells me her RLQ has resolved but her R flank pain has persisted. The pain improved for a few days after discharge but had returned. She denies dysuria or frequency. While in the ED her ultrasound demonstrated persistent R renal calculus. She was given morphine for the pain and then developed central chest pain that radiates to her back. Case discussed with ED ZURDO Alejandro. History Information - Allergies/Home Medication List Allergies/Adverse Reactions: ciprofloxacin Allergy (Intermediate, Verified 12/05/18 22:38) Penicillins Allergy (Intermediate, Verified 12/05/18 22:38) Home Medications: Etanercept [Enbrel Sureclick] 50 mg SQ Q7D 11/24/18 [Last Taken 11/14/18] FOLIC ACID 0.4 mg PO DAILY 11/24/18 [Last Taken 11/24/18 09:00] Herbals/Supplements -Info Only 1 ea PO DAILY 11/24/18 [Last Taken 11/24/18 09:00 ] Vit27&Calcium/Iron/FA [] 1 each PO DAILY 11/24/18 [Last Taken 11/24/18 09:00] I have personally reviewed and updated: family history, medical history - Past Medical History Additional medical history: RA - Surgical History Reports: cholecystectomy - Family History Positive for: diabetes type II, hypertension Additional family history: SLE - Social History Smoking Status: Never smoked Review of Systems Review of Systems: ROS: 10pt was reviewed & negative except for what was stated in HPI & below Physical Exam Physical Exam: Temp Pulse Resp BP Pulse Ox 36.9 C 108 H 16 117/58 L 98 12/06/18 04:09 12/06/18 04:09 12/06/18 04:09 12/06/18 04:09 12/06/18 04:09 O2 (L/minute) 2 Constitutional: appears nourished, uncomfortable Eyes: PERRL, EOMI Ears, Nose, Mouth, Throat: moist mucous membranes, no oral mucosal ulcers Cardiovascular: regular rate and rhythym, no murmur, rub, or gallop Respiratory: no respiratory distress, clear to auscultation Gastrointestinal: normoactive bowel sounds, tenderness (R flank) Skin: warm, normal color Musculoskeletal: full muscle strength, No no joint effusions Neurologic: AAOx3, CN II-XII Intact Psychiatric: interacting appropriately, not anxious Lab Data & Imaging Review 12/05/18 23:03 12/05/18 23:03 WBC 8.27 10^3/uL (3.80-9.50) 12/05/18 23:03 RBC 4.50 10^6/uL (4.18-5.33) 12/05/18 23:03 Hgb 14.1 g/dL (12.6-16.3) 12/05/18 23:03 Hct 42.7 % (38.0-47.0) 12/05/18 23:03 MCV 94.9 fL (81.5-99.8) 12/05/18 23: MCH 31.3 pg (27.9-34.1) 12/05/18 23:03 MCHC 33.0 g/dL (32.4-36.7) 12/05/18 23:03 RDW 12.7 % (11.5-15.2) 12/05/18 23:03 Plt Count 275 10^3/uL (150-400) 12/05/18 23:03 MPV 9.7 fL (8.7-11.7) 12/05/18 23:03 Neut % (Auto) 83.3 % (39.3-74.2) H 12/05/18 23:03 Lymph % (Auto) 7.9 % (15.0-45.0) L 12/05/18 23:03 [place] % (Auto) 7.0 % (4.5-13.0) 12/05/18 23:03 Eos % (Auto) 1.2 % (0.6-7.6) 12/05/18 23:03 Baso % (Auto) 0.4 % (0.3-1.7) 12/05/18 23:03 Nucleat RBC Rel Count 0.0 % (0.0-0.2) 12/05/18 23:03 Absolute Neuts (auto) 6.89 10^3/uL (1.70-6.50) H 12/05/18 23:03 Absolute Lymphs (auto) 0.65 10^3/uL (1.00-3.00) L 12/05/18 23:03 Absolute Monos (auto) 0.58 10^3/uL (0.30-0.80) 12/05/18 23:03 Absolute Eos (auto) 0.10 10^3/uL (0.03-0.40) 12/05/18 23:03 Absolute Basos (auto) 0.03 10^3/uL (0.02-0.10) 12/05/18 23:03 Absolute Nucleated RBC 0.00 10^3/uL (0-0.01) 12/05/18 23:03 Immature Gran % 0.2 % (0.0-1.1) 12/05/18 23:03 Immature Gran # 0.02 10^3/uL (0.00-0.10) 12/05/18 23:03 Sodium 137 mEq/L (135-145) 12/05/18 23:03 Potassium 3.8 mEq/L (3.5-5.2) 12/05/18 23:03 Chloride 104 mEq/L (97-110) 12/05/18 23:03 Carbon Dioxide 23 mEq/l (22-31) 12/05/18 23:03 Anion Gap 10 mEq/L (6-14) 12/05/18 23:03 BUN 15 mg/dL (7-23) 12/05/18 23:03 Creatinine 0.7 mg/dL (0.6-1.0) 12/05/18 23:03 Estimated GFR > 60 12/05/18 23:03 Glucose 109 mg/dL (70-100) H 12/05/18 23:03 Calcium 9.4 mg/dL (8.5-10.4) 12/05/18 23:03 Total Bilirubin 2.3 mg/dL (0.1-1.4) H 12/05/18 23:03 Conjugated Bilirubin 0.3 mg/dL (0.0-0.5) 12/05/18 23:03 Unconjugated Bilirubin 2.0 mg/dL (0.0-1.1) H 12/05/18 23:03 AST 22 IU/L (14-46) 12/05/18 23:03 ALT 22 IU/L (9-52) 12/05/18 23:03 Alkaline Phosphatase 68 IU/L (38-126) 12/05/18 23:03 Troponin I < 0.012 ng/mL (0.000-0.034) 12/05/18 23:03 Total Protein 7.9 g/dL (6.3-8.2) 12/05/18 23:03 Albumin 4.7 g/dL (3.5-5.0) 12/05/18 23:03 Lipase 112 IU/L (23-300) 12/05/18 23:03 Procalcitonin 0.05 ng/mL (0.02-0.10) 12/05/18 23:03 Beta HCG, Qual NEGATIVE 12/05/18 23:03 Urine Color YELLOW 12/05/18 23:03 Urine Appearance CLEAR 12/05/18 23:03 Urine pH 5.0 (5.0-7.5) 12/05/18 23:03 Ur Specific [place] 1.023 (1.002-1.030) 12/05/18 23:03 Urine Protein NEGATIVE (NEGATIVE) 12/05/18 23:03 Urine Ketones TRACE (NEGATIVE) H 12/05/18 23:03 Urine Blood NEGATIVE (NEGATIVE) 12/05/18 23:03 Urine Nitrate NEGATIVE (NEGATIVE) 12/05/18 23:03 Urine Bilirubin NEGATIVE (NEGATIVE) 12/05/18 23:03 Urine Urobilinogen 2.0 EU (0.2-1.0) H 12/05/18 23:03 Ur Leukocyte Esterase NEGATIVE (NEGATIVE) 12/05/18 23:03 Urine RBC 1-3 /hpf (0-3) 12/05/18 23:03 Urine WBC 1-3 /hpf (0-3) 12/05/18 23:03 Ur Epithelial Cells TRACE /lpf (NONE-1+) 12/05/18 23:03 Urine Mucus TRACE /lpf (NONE-1+) 12/05/18 23:03 Urine Glucose NEGATIVE (NEGATIVE) 12/05/18 23:03 Imaging Review: Imaging Impressions Abdomen/Pelvis Ultrasound 12/05/18 22:47 Impression: 1. No hydronephrosis. 2. Nonobstructive calculus upper pole right kidney. Findings discussed with Noam Alejandro PAC at 23:52 hour, 12/05/2018. Visualized and Interpreted EKG results: Yes EKG Interpretation: Positive for: normal sinsus rhythm, other (Incomplete RBBB) , T waves inversion (Anterior leads) Assessment & Plan Assessment: 28 yo F w/ RA presents w/ R flank pain. Plan: 1. R flank pain - Possibly due to nonobstructive calculus of the upper lobe of the right kidney. Extensive work-up during recent admission including CT of her abdomen was unrevealing. Her abdominal exam and laboratory work-up are reassuring. - Aggressive IVF, tamsulosin IVF - Pain control PRN 2. Atypical chest pain - This developed after administration of morphine in the ED. ECG (personally reviewed/interpreted) demonstrates incomplete RBBB and anterior T waves, which is odd for a healthy 28 y F. - Will check troponins 3. Hyperbilirubinemia - Predominantly unconjugated; review of previous labs demonstrates occasional elevation, which may be consistent with Gilbert's. - Trend CMP, RUQ U/S if rising 4. RA - On Enbrel as outpatient Diet - Regular Code - Full Ppx - Low risk, ambulate TID Dispo - Admit under observation status
[2018-12-06 05:39] LABS: PLATELET COUNT 232 10^3/uL (150-400)
--- NOTE | 2018-12-06 06:08 | CPEKG ---
Test Reason : OPEN Blood Pressure : / mmHG Vent. Rate : 076 BPM Atrial Rate : 075 BPM P-R Int : 130 ms QRS Dur : 113 ms QT Int : 490 ms P-R-T Axes : 078 082 089 degrees QTc Int : 552 ms Sinus rhythm Probable left atrial enlargement Abnormal T, consider ischemia, anterior leads Prolonged QT interval Confirmed by Teodoro Durand ([id number]) on 12/06/2018 6:07:16 AM Referred By: Teodoro Durand Confirmed By:Teodoro Durand
--- NOTE | 2018-12-06 08:16 | HOSPPROG ---
Hospitalist Progress Note Assessment/Plan: DIAGNOSES: * Acute hepatitis, uncertain etiology; this is certainly the cause of her presenting pain -some associated diarrhea -previous history cholecystectomy, and states some hepatitis vaccine but unable to state which virus(es) vaccinated -no foreign travel, but has had some diarrhea lately as well * Patient has a upper pole renal stone, this is not at all a part of her pain syndrome and will not currently treat further for this * EKG abnormalities of uncertain significance, ?relation to her pleuritic pain ( ekg changes not typical of pericarditis) PLANS: * Acute hepatitis panel is ordered stat * Will ultrasound liver and biliary system * stool pathogen pcr panel * other diagnostic or treatment measures when results available * continue IV hydration for moment * narcotic analgesics discontinued * No treatment is needed for her stone acutely, though she should chronically be on daily high-level hydration intake other preventive measures seen by me on hospitalist rounds today as well as multidisc rounds > 35 mins bedside in addition to time spent by Dr Toro on his admission activities SUBJECTIVE: has had a variety of pain if several locations overnight and this am. Main pain is RUQ and epigstric at present, but mild. Has had some pleuritic chest pain (now resolved after meds), some back pain, and some diffuse myalgias (now resolved) no nausea or vomiting today; admits to some nausea and some diarrhea at home OBJECTIVE Vitals reviewed: T-max 37.5, is somewhat tachycardic today Exam: alert oriented skin warm dry color ok resps not labored lungs clear BSs heart regular abd soft nondistended nontender, bowel sounds present limbs warm, no edema iv site ok Lab data: White blood cell count improved and normal Has developed mild anemia 11.9 hemoglobin normocytic, platelets normal Overnight severe hepatitis is now parent with AST greater than 1000, bilirubin 3.5 Troponins remain negative I reviewed both EKGs from today, showing sinus rhythm with right bundle branch block and some diffuse T-wave inversion, nothing that appears overtly ischemic Objective: Vital Signs Temp Pulse Resp BP Pulse Ox 36.9 C 108 H 16 117/58 L 98 12/06/18 04:09 12/06/18 04:09 12/06/18 04:09 12/06/18 04:09 12/06/18 04:09 Laboratory Results 12/06/18 04:49 12/06/18 04:49 12/05/18 12/06/18 12/07/18 06:59 06:59 06:59 Intake Total 453 Output Total 100 Balance 353 ICD10 Worksheet Patient Problems: Problems Problem Status Onset Flank pain, acute Acute Abdominal pain Acute Blurred vision, bilateral Acute Cephalgia Acute Jaw pain Acute Pain of left calf Acute Pancreatitis Acute Spontaneous vaginal delivery Acute
[2018-12-06 09:48] LABS: HEPATITIS A ANTIBODY IGM (BCH) NEGATIVE (NEGATIVE); HEPATITIS B CORE AB IGM NEGATIVE (NEGATIVE); HEPATITIS B SURFACE ANTIGEN NEGATIVE (NEGATIVE); HEPATITIS C ANTIBODY TOTAL NEGATIVE (NEGATIVE)
[2018-12-06 10:03] LABS: CREATINE KINASE < 20 IU/L (0-156)
--- NOTE | 2018-12-06 10:16 | ASMTCMCOM ---
CM Note CM Note Notes: Chart reviewed and met with Pt, by her side. Katarina Eid is a 28 year old admitted with reaccurant right flank pain which she reports is much better. PT will likely go home independent with . Case Management available if needs arise. Plan: Likely Home independently Date Signed: 12/06/2018 10:15 AM Electronically Signed By:Silvia Solorzano
[2018-12-06 13:11] LABS: INR 1.1 (0.83-1.16); PROTIME(PATIENT) 13.8 SEC (12.0-15.0)
[2018-12-06] MEDS: KETOROLAC 15 MG/1 ML SDV IVP SCH ×2 (14:09→18:07)
[2018-12-07] MEDS: D5W 1/2 NS W/ 20 KCl/L 1,000 ML IV SCH ×2 (04:30→14:36)
--- NOTE | 2018-12-07 08:22 | PDMN ---
Medical Necessity Medical necessity: [facility]: M570 liver disease complications- A-2 days;( severe hepatitis with AST 15X upper limit of normal or higher ) 28yo F presents with R flank pain, thought to be a R renal calculus - overnight AST>1000, 1097 ALT 593, 844 bilirubin 3.5,3.4, - still with RUQ pain, epigastric pain, pleuritic CP, back pain, some diffuse myalgia's, also with mild anemia Hgb 11.9. status changed to INPT for ongoing med nec care > 2MN anticipated
[2018-12-07 12:48] LABS: PLATELET COUNT 231 10^3/uL (150-400)
--- NOTE | 2018-12-07 14:34 | ASMTCMCOM ---
CM Note CM Note Notes: Patient discussed during medical rounds, plan to monitor liver function and hydration for Norovirus induced Hepatitis. Patient feeling better today, to discharge home independent, possilbly tonight or tomorrow. CM to follow. D/C Plan: Home independent. Date Signed: 12/07/2018 02:33 PM Electronically Signed By:Cici Vitale
--- NOTE | 2018-12-07 15:52 | PDDCSUM ---
Discharge Summary Discharge Summary: DISCHARGE DIAGNOSES: * acute norovirus gastroenteritis * acute hepatitis, rapidly resolving, presumed due to her norovirus infection * asymptomatic nephrolithiasis with a small superior pole kidney stone incidentally noted PROCEDURES: Abdominal ultrasound which was unremarkable HOSPITAL COURSE SUMMARY: This patient who had been seen in the ER here on November 24 with abdominal discomfort continued to have abdominal discomfort. She came back into the ER and here had a brief period of chest discomfort. There were no specific diagnostic findings to explain her symptoms but she was felt ill enough that we should bring her into the hospital and monitor. On further questioning she had been having some diarrhea intermittently. We are questioned her about family and her had onset of diarrhea before she had onset. There was no bleeding though she did have some fevers intermittently at home low-grade. He had no shortness of breath joints skin or mucosal symptoms. Initially in the ER blood tests were fairly unremarkable. However on follow-up the 2nd day she had transaminases that went from the 20s to 1000 for AST in 500 for ALT. Later that day the AST was stable at a 1000 but ALT was at 800+. Her bilirubin increased slightly to 3.5 INR 1.1. An abdominal ultrasound was unremarkable. We did stool samples and these came back positive for norovirus. We kept her hydrated with intravenous fluids. At this point her symptoms have revolved quite remarkably. She has no more diarrhea and is eating a bit better. She still has poor appetite but she is not nauseous. She is up walking in the hallways without difficulty. She does not have pain or tenderness in the upper abdomen. By today her transaminases are down to 402 100 and her bilirubin is down to 0.6. At this point she is felt stable for discharge to home. It is recommended that she not prepare food for others nor her for another week. They have a 3-year-old son for him they will have to do some food preparation but she will seek help from her other family members and she is aware to have meticulous hand washing for her and try and have she and her served their child no touch foods were only the child actually touches the food. She is aware to wear mask in public for the next week. Is recommended she not use any alcohol for 8 weeks. In addition we have tested her here for hepatitis A B and C and her acute serologies are negative. However the chronic serologies that would suggest immunity from vaccines are pending. She believes somehow that she received childhood hepatitis a and B vaccines however at the time she would of been getting those vaccines we were not always doing these routinely for children in this country. Therefore in order to avoid future hepatic insult will want to be sure she has immunity to hepatitis a and B. If her tests come back showing lack of immunity vaccines are recommended. She is aware of this. In incidental asymptomatic kidney stone was found in her kidney upper pole. Because of this she is advised to keep well hydrated at all times throughout her life. PENDING TEST RESULTS: Hepatitis a and B serology to look for immunity from past vaccinations MEDICATION CHANGES: None FOLLOW-UP PLAN: She has an appointment at [facility] in 2 weeks; liver enzymes should be rechecked and final results from her chronic hepatitis a and B serologies should be checked and vaccines offered if she is not immune to A and B Greater than 35 minutes bedside and care coordination time today
[2018-12-07 16:33] VITALS: BP 99/65
[2018-12-07 19:41] LABS: HEPATITIS A ANTIBODY TOTAL POSITIVE (NEGATIVE)
[2018-12-07 20:38] LABS: HEPATITIS A ANTIBODY IGM (BCH) NEGATIVE (NEGATIVE)
--- NOTE | 2018-12-08 06:33 | GCON ---
[f rep st] CONSULTATION GI INPATIENT CONSULTATION DATE OF CONSULTATION: 12/07/2018 REFERRING PHYSICIAN: Nigel Grday MD I was kindly requested to see the patient by Dr. Nigel Grady for a chief complaint of abnormal liver tests. She is a 28-year-old female who presented to the hospital with right flank pain. She has had this for several weeks. At first, it was thought to be due to a right ovarian cyst that ruptured. Subsequent imaging has shown a nonobstructive right-sided kidney stone. On admission, her transaminases were normal. However, the next day, they increased to an AST of 1097, an ALT of 844. Normal alkaline phosphatase. Normal PT/INR. Today, they are better, with an AST of 233 and an ALT of 439. She has tested positive for norovirus. She denies alcohol, Tylenol, mushrooms. She does take a [place]ian herbal supplement at home. She has a history rheumatoid arthritis and is on Enbrel, but has been on this for some time. PAST MEDICAL HISTORY: 1. As above. 2. Cholecystectomy. 3. Otherwise, noncontributory. MEDICATIONS: Outpatient medications include the above. Inpatient medications include IV fluids and Toradol as needed. SOCIAL HISTORY: As above. FAMILY HISTORY: Negative for similar transaminitis. REVIEW OF SYSTEMS: Positive pertinent review of systems as per my HPI. Otherwise, complete review of systems is negative. PHYSICAL EXAM: CONSTITUTIONAL: Nontoxic-appearing pleasant woman. VITAL SIGNS : Stable. SKIN: Warm, dry. EYES: Pupils equal, round, reactive to light and accommodation. EARS, NOSE, MOUTH, and THROAT: Oropharynx without masses. Moist mucosa. CARDIOVASCULAR: Normal S2, normal PMI. RESPIRATORY: Lungs clear to auscultation and percussion anteriorly. GASTROINTESTINAL: Abdomen soft, nontender. NEUROLOGIC: Grossly nonfocal with cranial nerves grossly intact. PSYCHIATRIC: Orientation, insight appropriate. MUSCULOSKELETAL: Strength grossly normal throughout. Normal station. LABORATORIES: Include a negative beta HCG. Hematocrit stable at 35.1%. Normal urinalysis. Ultrasound x2 over the last 12 days shows no biliary duct dilation. Normal Tylenol level, hepatitis serologies. Lipase normal. CT scan of the abdomen and pelvis with IV contrast recently shows the above nonobstructive right kidney stone. Renal ultrasound shows this as well. Total bilirubin now normal. ASSESSMENT: 1. Right flank pain. Suspect due to the above right-sided kidney stone. Further management as per the hospitalist service. 2. Elevated transaminases, now improving. Most likely viral due to norovirus. Other possibilities, such as a side effect to her Georgian herbal supplement that she takes as an outpatient, are possible, but less likely. PLAN: 1. In terms of her transaminitis, I suspect this will totally resolve over time. 2. Upon discharge, recommend she follow up with her primary care physician. If her transaminases do increase again in the future, would then recommend stopping her [place]ian supplement. I will sign off. Please let me know if we can be of further help in the future. /[id number]/MODL MTDD
--- NOTE | 2018-12-12 11:09 | CPEKG ---
Test Reason : OPEN Blood Pressure : / mmHG Vent. Rate : 093 BPM Atrial Rate : 094 BPM P-R Int : 144 ms QRS Dur : 107 ms QT Int : 334 ms P-R-T Axes : 066 063 -83 degrees QTc Int : 416 ms Sinus rhythm Probable left atrial enlargement Incomplete right bundle branch block Nonspecific ST abnormality Confirmed by Ward Go ([id number]) on 12/12/2018 11:08:39 AM Referred By: Blake Powers Confirmed By:Ward Go
== END 2018-12-07 17:15 | disposition home or self-care (01) | DRG 392 ==
LOC: F1N 12-06 00:50 → OBSVTOIN 12-06 21:49
PROVIDERS: ADMIT Student in an Organized Health Care Education/Training Program; ATTEND Internal Medicine
DX: A08.11 Acute gastroenteropathy due to Norwalk agent (principal); B17.9 Acute viral hepatitis, unspecified; N20.0 Calculus of kidney; R07.89 Other chest pain
CPT/HCPCS: 86644-90; 86645-90; 86664-90; 86665-90; 86708-90; 86709-90; 96374; G0472; G0480; J1885; J2060; J2270; J2405

== ENCOUNTER → 2019-01-06 | Outpatient (CLI) | payer OTHER | LOC: FIMAGING 12:15 | PROVIDERS: ATTEND Physician Assistant | DX: R10.11 Right upper quadrant pain (principal); Z90.49 Acquired absence of other specified parts of digestive tract ==

== ENCOUNTER → 2019-02-15 | Outpatient (CLI) | payer OTHER | LOC: FIMAGING 08:05 | PROVIDERS: ATTEND Internal Medicine Rheumatology | DX: M05.741 Rheumatoid arthritis with rheumatoid factor of right hand without organ or systems involvement (principal) ==